=== PATIENT | male | born 1985 | race Caucasian/White ===

== ENCOUNTER 2018-03-28 10:22 | Emergency (ER) | payer OTHER, SELFPAY ==
[2018-03-28 10:34] VITALS: BP 156/96; PULSE 110; RESP 18; TEMP 36.2; O2SAT 100
--- NOTE | 2018-03-28 10:47 | DI.RAD.S_ITS ---
PROCEDURE: XR CHEST 2V INDICATIONS: cough TECHNIQUE: 2 views of the chest were acquired. COMPARISON: [facility], CHEST 2 VIEW, 07/06/2017, 15:46. [facility], CHEST 1 VIEW, 06/07/2017, 12:16. FINDINGS: Surgical changes and devices: None. Lungs and pleura: No pleural effusions or pneumothorax. Lungs are clear. Mediastinum: Mediastinal contours are normal. Heart size is normal. Bones and chest wall: No suspicious bony abnormalities. Soft tissues appear unremarkable. IMPRESSION: No radiographic evidence of acute cardiopulmonary pathology. Dictated by: Levon Lopez M.D. on 03/28/2018 at 11:31 Approved by: Levon Lopez M.D. on 03/28/2018 at 11:32
--- NOTE | 2018-03-28 10:47 | DI.CT.S_ITS ---
PROCEDURE: CT ABDOMEN PELVIS W CON INDICATIONS: superior to umbilicus pain and ? palpable tissue - hernia? TECHNIQUE: After the administration of intravenous contrast, 5 mm thick sections acquired from the diaphragm to the symphysis. 5 mm coronal and sagittal reformats were acquired. For radiation dose reduction, the following was used: automated exposure control, adjustment of mA and/or kV according to patient size. COMPARISON: [facility], CT, LOWER EXTREMITY WO CONTRAST, 10/09/2017, 20:16. FINDINGS: Image quality: Excellent. ABDOMEN: Lung bases: Lung bases are clear. Heart size is normal. Solid organs: Fatty infiltration of liver. The gallbladder is radiographically normal. Biliary system is non dilated. Pancreas enhances normally. Spleen is normal in size and enhancement. No adrenal nodules. Kidneys demonstrate normal size and enhancement, without hydronephrosis. Peritoneum and bowel: Diffuse fatty infiltration of the colon and a portion of the small bowel. There minimally prominent portions of small bowel with air-fluid levels. Normal appendix. Nodes and vessels: No retroperitoneal or mesenteric adenopathy by size criteria. Aorta and inferior vena cava are normal in size. Miscellaneous: Small fat-containing periumbilical hernia. PELVIS: Genitourinary: Bladder wall thickness is normal. Miscellaneous: No inguinal hernias or adenopathy. Bones: No suspicious bony lesions. No vertebral body compression fractures. Lumbar spine degenerative change. IMPRESSION: 1. Diffuse fatty infiltration of the colon and a portion of the small bowel may represent chronic inflammation. Please correlate for any clinical history of inflammatory bowel disease. 2. Several loops of small bowel including the terminal ileum are mildly prominent with air-fluid levels. Obstruction is unlikely. Findings likely represent sequelae of chronic inflammation. 3. Fatty infiltration of the liver. Dictated by: Levon Lopez M.D. on 03/28/2018 at 11:34 Approved by: Levon Lopez M.D. on 03/28/2018 at 11:39
[2018-03-28 11:14] LABS: Add Manual Diff / Slide Review NO; Basophils Percent Auto 0.7 % (0-2); Eosinophils Percent Auto 0.5 % (2-4); Hematocrit 45.2 % (41-53); Hemoglobin 15.6 g/dL (13.5-17.5); Lymphocytes Percent Auto 16.9 % (25-40); Mean Corpuscular HGB Conc 34.6 % (30-36); Mean Corpuscular Hemoglobin 29.6 PG (26-34); Mean Corpuscular Volume 85.5 fL (80-100); Monocytes Percent Auto 5.8 % (3-14); Neutrophils Absolute Auto 9700 /uL (3000-5900); Neutrophils Percent Auto 76.1 % (50-75); Platelet Count 347 X10^3/uL (150-400); Red Blood Cell Count 5.28 X10^6/uL (4.5-5.9); Red Cell Distribution Width 13.2 % (11.6-14.8); White Blood Cell Count 12.8 X10^3/uL (4.5-11.0)
[2018-03-28 11:25] LABS: Alanine Aminotransferase 50 IU/L (21-72); Albumin 4.8 g/dL (3.5-5.0); Albumin Globulin Ratio 1.5 (1.0-2.8); Alkaline Phosphatase 73 U/L (38-126); Aspartate Aminotransferase 34 IU/L (17-59); BUN Creatinine Ratio 14.4 (6-22); Bilirubin Total 0.5 mg/dL (0.2-1.3); Blood Urea Nitrogen 13 mg/dL (9-20); Calcium 9.9 mg/dL (8.4-10.2); Carbon Dioxide 31 mmol/L (22-32); Chloride 96 mmol/L (98-107); Estimated Glomerular Filt Rate > 60.0 mL/min (>60); Globulin 3.2 g/dL (1.7-4.1); Glucose 109 mg/dL (70-100); HEMOLYSIS < 15 (0-50); Lipase 244 U/L (23-300); Potassium 3.7 mmol/L (3.4-5.1); Sodium 141 mmol/L (137-145)
--- NOTE | 2018-03-28 11:33 | RT ---
EKG ORDER CAME TO US AT 10:52 ORDER FOUND ON PRINTER @ [id number] EKG WAS DONE @ 11:21 BUT PT HAD BEEN OVER IN X-RAY BEFORE RT WENT TO ER.
[2018-03-28 11:38] LABS: Troponin I < 0.012 ng/mL (0.01-0.034)
[2018-03-28 12:59] LABS: Procalcitonin < 0.05 ng/mL (<0.5)
--- NOTE | 2018-03-28 13:32 | ED.ABDPAIN ---
HPI - Abdominal Pain General Chief Complaint: Abdominal Pain Stated Complaint: Abdominal pain Time Seen by Provider: 03/28/18 10:29 History of Present Illness HPI narrative: HPI 32-year-old obese male presents for evaluation of upper midline sharp nonradiating pain that occurs when coughing; notes one month of nonproductive cough refractory to azithromycin and doxycycline. Patient is a recreational marijuana smoker, denies cigarette usage. Continues pass flatus and stool at baseline. No chest pain, shortness breath, fevers, chills. M/S/F/SocHx notable for: please see HPI; remainder reviewed with patient and in chart. ROS: Negative constitutional, eye, cardiovascular, pulmonary, GI, , MSK, skin, neurologic, psychiatric, endocrine unless noted in the HPI. Exam Gen: Pleasant, non-toxic appearing, resting comfortably. HEENT: NC, AT, PEERL, EOMI. Resp: Clear to auscultation bilaterally, normal work of breathing, no accessory muscle usage. Card: Regular rate and rhythm with no murmurs, rubs, or gallops, extremities warm and well perfused. GI: proximally 5 cm superior to the umbilicus there is midline tenderness to palpation with a questionable soft tissue palpable abnormality, otherwise non-tender to palpation throughout all quadrants, no focal tenderness at McBurney's point, negative Mayo's sign, non-distended, no rebound or guarding. : No suprapubic tenderness to palpation. MSK: No visible deformities, strength and tone without visually appreciable deficit. Skin: Normal color with no visible lesions. Neuro: AO x 3, no facial asymmetry, vision and hearing WNL. Psych: Mood and affect appropriate. Labs / Imaging: WBC 12.8, hemoglobin 15.6, sodium 141, potassium 3.7, total bilirubin 0.5, AST 34, ALT 50, ALP 73, lipase 244. Troponin <0.012 Procalcitonin <0.05 CT Abd/pelvis: diffuse fatty infiltration the colon and portion small bowel may represent chronic inflammation. Please correlate for in a clinical history of inflammatory bowel disease. Several loops of small bowel including the terminal ileum are mildly prominent with air-fluid levels. Obstruction is unlikely. Findings likely represent sequela of chronic inflammation. Fatty infiltration of the liver. CXR: no radiographic evidence for acute cardiopulmonary pathology. EKG: SR 90 bpm, no ST segment elevations or depressions, no LBBB, no NH segment changes. MDM Previous chart, nursing note, labs, imaging, and vitals reviewed. A: 32-year-old obese male presents for evaluation of upper midline sharp nonradiating pain that occurs when coughing; notes one month of nonproductive cough refractory to azithromycin and doxycycline. DDx & Evaluation: patient's chest x-ray is without evidence of cardiopulmonary abnormality, has a mild nonspecific leukocytosis, negative Procalcitonin. As such there is no clear evidence of pericardial or pleural effusions, pulmonary edema, pneumonitis, or pneumonia. Given the unremarkable EKG and negative troponin, strongly doubt ACS, myocarditis, pericarditis. Patient without factors on history or exam suggestive of PE. No evidence of pancreatitis, CT abdomen and pelvis with symptoms suggestive of chronic inflammation, this was communicated with the patient and the patient instructed to follow up with their PCP. No evidence of hernia or obstruction. Impression: cough, abdominal pain. (please reference below for remainder of encounter information) Related Data Home Medications Medication Instructions Recorded Confirmed acetaminophen 650 mg PO PRN PRN #0 04/22/17 multivitamin [Multiple Vitamins] 1 tab PO QDAY #0 06/04/17 Previous Rx's Medication Instructions Recorded topiramate [Topamax] 25 mg OR HS #30 tab 06/10/17 albuterol sulfate [Ventolin HFA] 2 puff INH Q4HP PRN #1 ea 02/10/18 doxycycline hyclate 100 mg PO BID #20 tab 02/10/18 gabapentin [Neurontin] 800 mg PO QID #120 tab 02/10/18 hydrochlorothiazide 50 mg PO QDAY #90 tab 02/10/18 hydrocodone-acetaminophen [[place]] 1 tab PO Q6HP PRN #20 tab 02/10/18 ibuprofen 800 mg PO Q8HP PRN #60 tab 02/10/18 lisinopril 10 mg PO QDAY #90 tab 02/10/18 Allergies Allergy/AdvReac Type Severity Reaction Status Date / Time No Known Allergies Allergy Uncoded 02/04/18 12:40 PFSH Surgical History History of knee replacement Exam Initial Vital Signs Initial Vital Signs: Vital Signs Temperature 97.2 F L 03/28/18 10:34 Pulse Rate 110 H 03/28/18 10:34 Respiratory Rate 18 03/28/18 10:34 Blood Pressure 156/96 H 03/28/18 10:34 Pulse Oximetry 100 03/28/18 10:34 Course Orders Ordered: ED Orders 03/28/18 10:47 CT abdomen pelvis w con Stat XR chest 2V Stat 03/28/18 11:00 Complete Blood Count AUTO DIFF Stat Comprehensive Metabolic Panel Stat Lipase Stat Procalcitonin Stat Troponin I Stat 03/28/18 11:21 EKG-12 Lead Stat 03/28/18 11:40 Bordetella pertussis PCR Stat Vital Signs - 8 hr 03/28/18 10:34 Temperature 97.2 F L Pulse Rate 110 H Respiratory Rate 18 Blood Pressure 156/96 H Pulse Oximetry 100 MDM - Abdominal Pain Lab Data Result diagrams: 03/28/18 11:00 03/28/18 11:00 Lab Results 03/28/18 03/28/18 03/28/18 Range/Units 11:00 11:00 11:00 WBC 12.8 H (4.5-11.0) X10^3/uL RBC 5.28 (4.5-5.9) X10^6/uL Hgb 15.6 (13.5-17.5) g/dL Hct 45.2 (41-53) % MCV 85.5 (80-100) fL MCH 29.6 (26-34) PG MCHC 34.6 (30-36) % RDW 13.2 (11.6-14.8) % Plt Count 347 (150-400) X10^3/uL Neut % (Auto) 76.1 H (50-75) % Lymph % (Auto) 16.9 L (25-40) % [place] % (Auto) 5.8 (3-14) % Eos % (Auto) 0.5 L (2-4) % Baso % (Auto) 0.7 (0-2) % Neut # (Auto) 9700 H (2787-1230) /uL Sodium 141 (137-145) mmol/L Potassium 3.7 (3.4-5.1) mmol/L Chloride 96 L (98-107) mmol/L Carbon Dioxide 31 (22-32) mmol/L BUN 13 (9-20) mg/dL Creatinine 0.90 (0.66-1.25) mg/dL Estimated GFR > 60.0 (>60) mL/min BUN/Creatinine Ratio 14.4 (6-22) Glucose 109 H (70-100) mg/dL Calcium 9.9 (8.4-10.2) mg/dL Total Bilirubin 0.5 (0.2-1.3) mg/dL AST 34 (17-59) IU/L ALT 50 (21-72) IU/L Alkaline Phosphatase 73 (38-126) U/L Troponin I (0.01-0.034) ng/mL Total Protein 8.0 (6.3-8.2) g/dL Albumin 4.8 (3.5-5.0) g/dL Globulin 3.2 (1.7-4.1) g/dL Albumin/Globulin Ratio 1.5 (1.0-2.8) Lipase 244 (23-300) U/L Procalcitonin < 0.05 (<0.5) ng/mL 03/28/18 Range/Units 11:00 WBC (4.5-11.0) X10^3/uL RBC (4.5-5.9) X10^6/uL Hgb (13.5-17.5) g/dL Hct (41-53) % MCV (80-100) fL MCH (26-34) PG MCHC (30-36) % RDW (11.6-14.8) % Plt Count (150-400) X10^3/uL Neut % (Auto) (50-75) % Lymph % (Auto) (25-40) % [place] % (Auto) (3-14) % Eos % (Auto) (2-4) % Baso % (Auto) (0-2) % Neut # (Auto) (3919-4659) /uL Sodium (137-145) mmol/L Potassium (3.4-5.1) mmol/L Chloride (98-107) mmol/L Carbon Dioxide (22-32) mmol/L BUN (9-20) mg/dL Creatinine (0.66-1.25) mg/dL Estimated GFR (>60) mL/min BUN/Creatinine Ratio (6-22) Glucose (70-100) mg/dL Calcium (8.4-10.2) mg/dL Total Bilirubin (0.2-1.3) mg/dL AST (17-59) IU/L ALT (21-72) IU/L Alkaline Phosphatase (38-126) U/L Troponin I < 0.012 (0.01-0.034) ng/mL Total Protein (6.3-8.2) g/dL Albumin (3.5-5.0) g/dL Globulin (1.7-4.1) g/dL Albumin/Globulin Ratio (1.0-2.8) Lipase (23-300) U/L Procalcitonin (<0.5) ng/mL Discharge Plan Departure Prescriptions: No Action acetaminophen 650 MG tablet extended release 650 mg PO PRN PRNQty: 0 RF: 0 multivitamin [Multiple Vitamins] 1 EACH tablet 1 tab PO QDAY Qty: 0 RF: 0 topiramate [Topamax] 25 MG tablet 25 mg OR HS Qty: 30 RF: 1 hydrochlorothiazide 50 MG tablet 50 mg PO QDAY Qty: 90 RF: 2 lisinopril 10 MG tablet 10 mg PO QDAY Qty: 90 RF: 0 ibuprofen 800 MG tablet 800 mg PO Q8HP PRNQty: 60 RF: 0 gabapentin [Neurontin] 800 MG tablet 800 mg PO QID Qty: 120 RF: 3 albuterol sulfate [Ventolin HFA] 90 MCG/PUFF HFA aerosol inhaler 2 puff INH Q4HP PRNQty: 1 RF: 1 doxycycline hyclate 100 MG tablet 100 mg PO BID Qty: 20 RF: 0 hydrocodone-acetaminophen [[place]] 5 MG/325 MG tablet 1 tab PO Q6HP PRNQty: 20 RF: 0
[2018-03-28 13:44] VITALS: BP 160/101; PULSE 88; RESP 20; O2SAT 98
== END 2018-03-28 13:44 | disposition home or self-care (01) ==
PROVIDERS: Emergency Provider Emergency Medicine; Family Provider Family Medicine; PCP Family Medicine
DX: R05 Cough (principal); R10.9 Unspecified abdominal pain
CPT/HCPCS: 36591; 71046; 74177; 80053; 83690; 84145; 84484; 85025; 87798; 93005; 99282; 99285; Q9967

== ENCOUNTER 2018-04-14 08:10 | Emergency (ER) | payer OTHER, SELFPAY ==
[2018-04-14 08:18] VITALS: BP 125/90; PULSE 109; RESP 16; O2SAT 98; BMI 39.3
--- NOTE | 2018-04-14 09:05 | ED.URI ---
HPI - URI/Sore Throat General Chief Complaint: Upper Respiratory Symptoms Stated Complaint: BLISTERS IN THROAT AND HANDS Time Seen by Provider: 04/14/18 08:13 Source: patient Mode of arrival: ambulatory Limitations: no limitations History of Present Illness HPI Narrative: 32-year-old male with history of asthma presents to the emergency department with chief complaint of painful blisters on bilateral poems. He states he has been exposed to [id number] disease and is concerned of the same in himself. He admits to a sore throat and difficulty swallowing as well as fever up to 103 at home MD Complaint: fever and sore throat Onset (ago): hour(s) Duration: constant Severity: moderate Relieving factors: nothing Exacerbating factors: nothing Associated symptoms: fever and sore throat Related Data Home Medications Medication Instructions Recorded Confirmed acetaminophen 650 mg PO PRN PRN #0 04/22/17 multivitamin [Multiple Vitamins] 1 tab PO QDAY #0 06/04/17 Previous Rx's Medication Instructions Recorded topiramate [Topamax] 25 mg OR HS #30 tab 06/10/17 albuterol sulfate [Ventolin HFA] 2 puff INH Q4HP PRN #1 ea 02/10/18 doxycycline hyclate 100 mg PO BID #20 tab 02/10/18 gabapentin [Neurontin] 800 mg PO QID #120 tab 02/10/18 hydrochlorothiazide 50 mg PO QDAY #90 tab 02/10/18 hydrocodone-acetaminophen [[place]] 1 tab PO Q6HP PRN #20 tab 02/10/18 ibuprofen 800 mg PO Q8HP PRN #60 tab 02/10/18 lisinopril 10 mg PO QDAY #90 tab 02/10/18 lisinopril 40 mg PO DAILY #30 tab 04/14/18 Allergies Allergy/AdvReac Type Severity Reaction Status Date / Time No Known Allergies Allergy Uncoded 02/04/18 12:40 Review of Systems Review of Systems All systems reviewed & are unremarkable except as noted in HPI and below Constitutional Denies chills, Denies fever(s), Denies lethargy and Denies weakness Eyes Denies change in vision, Denies eye discharge, Denies irritation and Denies loss of vision ENT Ears, Nose, Mouth, and Throat: Denies change in voice, Denies neck pain and Reports sore throat Cardiovascular Denies chest pain, Denies irregular heart rhythm, Denies lightheadedness, Denies palpitations, Denies dyspnea, Denies dyspnea on exertion and Denies orthopnea Respiratory Denies cough, Denies dyspnea, Denies dyspnea on exertion and Denies wheezing Gastrointestinal Gastrointestinal: Denies abdominal pain, Denies change in bowel habits, Denies diarrhea, Denies nausea and Denies vomiting Genitourinary Denies hematuria, Denies flank pain, Denies urinary incontinence and Denies urinary urgency Musculoskeletal Denies neck pain Integumentary/Breasts Denies pruritus, Reports erythema, Denies rash, Reports skin pain, Reports sores and Denies wounds Neurologic Denies confusion, Denies loss of vision and Denies weakness Psychiatric Denies anxiety, Denies confusion, Denies depression, Denies homicidal ideation and Denies suicidal ideation Endocrine Denies palpitations Hematologic/Lymphatic Denies easy bruising Allergic/Immunologic Denies wheezing PFSH Medical History Back pain (Chronic) Neuropathy (Chronic) Surgical History History of facial surgery (Resolved) Status post hip surgery (Resolved) History of knee replacement Social History Smoking Status: Never smoker Exam Narrative Exam Narrative: Pleasant 32-year-old male obviously uncomfortable, does not feel well Initial Vital Signs Initial Vital Signs: Vital Signs Pulse Rate 109 H 04/14/18 08:18 Respiratory Rate 16 04/14/18 08:18 Blood Pressure 125/90 H 04/14/18 08:18 Pulse Oximetry 98 04/14/18 08:18 Const General: cooperative and well developed Nutritional Appearance: well nourished Orientation: alert, awake, oriented x3 and not confused [facility] Head: normocephalic and atraumatic Ears: external ears normal and TM's normal bilaterally Nose: external nose normal and No nasal discharge Face and sinus: sinuses nontender, face symmetric, no sinus tenderness and No dry mucous membranes Mouth: moist mucous membranes Teeth and gingiva: dentition normal Throat: tonsils normal, uvula midline and posterior oropharynx abnormal (Erythema with small lesions on soft palate) Eyes General: appearance normal, both eyes and all related structures Eyelids: eyelids normal Conjunctivae: conjunctivae normal Sclera: sclerae normal Pupils: PERRL EOM: EOM intact bilaterally Neck Neck: normal visual inspection, trachea midline, No lymphadenopathy, No midline deformity and No JVD Lymphatic: No lymphedema Resp Effort & Inspection: normal respiratory effort, able to speak in complete sentences, no respiratory distress and no use of accessory muscles Auscultation: clear to auscultation bilaterally, no rales, no rhonchi and no wheezes GI Inspection: non-distended Palpation: soft, no hepatosplenomegaly, No guarding, No pulsatile mass and No tender Auscultation: normal bowel sounds Skin Lesions: lesion noted (Multiple small itchy/painful blisters on hands) Neuro General: alert, oriented x3, gait normal and no focal motor deficits Speech: speech normal Psych Appearance: well kempt Mental Status: mental status grossly normal Attitude: cooperative Thought Content: normal and suicidality Judgment: judgment good Course Vital Signs - 8 hr 04/14/18 10:22 Pulse Rate 97 H Respiratory Rate 18 Blood Pressure 138/99 H Pulse Oximetry 99 Discharge Plan Departure Patient Disposition: Home, Self-Care Clinical Impression: Hand, foot and mouth disease Discharge Date/Time: 04/14/18 10:25 Interventions: ED Discharge Assessment Last Done: 04/14/18 10:22 Instructions: Hand, Foot, and Mouth Disease Activity Restrictions/Additional Instructions: *You have been diagnosed with [ [id number] disease ] *What to do: *Take medications as directed *Follow up with your primary care provider in 2-3 days for followup on today's visit and to discuss your chronic cough which may be due to lisinopril *Return to ER if you should have any new, worsening or concerning symptoms Prescriptions: New lisinopril 40 mg tablet 40 mg PO DAILY Qty: 30 RF: 0 No Action acetaminophen 650 MG tablet extended release 650 mg PO PRN PRNQty: 0 RF: 0 multivitamin [Multiple Vitamins] 1 EACH tablet 1 tab PO QDAY Qty: 0 RF: 0 topiramate [Topamax] 25 MG tablet 25 mg OR HS Qty: 30 RF: 1 hydrochlorothiazide 50 MG tablet 50 mg PO QDAY Qty: 90 RF: 2 lisinopril 10 MG tablet 10 mg PO QDAY Qty: 90 RF: 0 ibuprofen 800 MG tablet 800 mg PO Q8HP PRNQty: 60 RF: 0 gabapentin [Neurontin] 800 MG tablet 800 mg PO QID Qty: 120 RF: 3 albuterol sulfate [Ventolin HFA] 90 MCG/PUFF HFA aerosol inhaler 2 puff INH Q4HP PRNQty: 1 RF: 1 doxycycline hyclate 100 MG tablet 100 mg PO BID Qty: 20 RF: 0 hydrocodone-acetaminophen [[place]] 5 MG/325 MG tablet 1 tab PO Q6HP PRNQty: 20 RF: 0 Stand Alone Forms: Work/School Restrictions
--- NOTE | 2018-04-14 09:24 | ED_ITS ---
HPI - URI/Sore Throat General Chief Complaint: Upper Respiratory Symptoms Stated Complaint: BLISTERS IN THROAT AND HANDS Time Seen by Provider: 04/14/18 08:13 Source: patient Mode of arrival: ambulatory Limitations: no limitations History of Present Illness HPI Narrative: 32-year-old male with history of asthma presents to the emergency department with chief complaint of painful blisters on bilateral poems. He states he has been exposed to [id number] disease and is concerned of the same in himself. He admits to a sore throat and difficulty swallowing as well as fever up to 103 at home MD Complaint: fever and sore throat Onset (ago): hour(s) Duration: constant Severity: moderate Relieving factors: nothing Exacerbating factors: nothing Associated symptoms: fever and sore throat Related Data Home Medications Medication Instructions Recorded Confirmed acetaminophen 650 mg PO PRN PRN #0 04/22/17 multivitamin [Multiple Vitamins] 1 tab PO QDAY #0 06/04/17 Previous Rx's Medication Instructions Recorded topiramate [Topamax] 25 mg OR HS #30 tab 06/10/17 albuterol sulfate [Ventolin HFA] 2 puff INH Q4HP PRN #1 ea 02/10/18 doxycycline hyclate 100 mg PO BID #20 tab 02/10/18 gabapentin [Neurontin] 800 mg PO QID #120 tab 02/10/18 hydrochlorothiazide 50 mg PO QDAY #90 tab 02/10/18 hydrocodone-acetaminophen [[place]] 1 tab PO Q6HP PRN #20 tab 02/10/18 ibuprofen 800 mg PO Q8HP PRN #60 tab 02/10/18 lisinopril 10 mg PO QDAY #90 tab 02/10/18 lisinopril 40 mg PO DAILY #30 tab 04/14/18 Allergies Allergy/AdvReac Type Severity Reaction Status Date / Time No Known Allergies Allergy Uncoded 02/04/18 12:40 Review of Systems Review of Systems All systems reviewed & are unremarkable except as noted in HPI and below Constitutional Denies chills, Denies fever(s), Denies lethargy and Denies weakness Eyes Denies change in vision, Denies eye discharge, Denies irritation and Denies loss of vision ENT Ears, Nose, Mouth, and Throat: Denies change in voice, Denies neck pain and Reports sore throat Cardiovascular Denies chest pain, Denies irregular heart rhythm, Denies lightheadedness, Denies palpitations, Denies dyspnea, Denies dyspnea on exertion and Denies orthopnea Respiratory Denies cough, Denies dyspnea, Denies dyspnea on exertion and Denies wheezing Gastrointestinal Gastrointestinal: Denies abdominal pain, Denies change in bowel habits, Denies diarrhea, Denies nausea and Denies vomiting Genitourinary Denies hematuria, Denies flank pain, Denies urinary incontinence and Denies urinary urgency Musculoskeletal Denies neck pain Integumentary/Breasts Denies pruritus, Reports erythema, Denies rash, Reports skin pain, Reports sores and Denies wounds Neurologic Denies confusion, Denies loss of vision and Denies weakness Psychiatric Denies anxiety, Denies confusion, Denies depression, Denies homicidal ideation and Denies suicidal ideation Endocrine Denies palpitations Hematologic/Lymphatic Denies easy bruising Allergic/Immunologic Denies wheezing PFSH Medical History Back pain (Chronic) Neuropathy (Chronic) Surgical History History of facial surgery (Resolved) Status post hip surgery (Resolved) History of knee replacement Social History Smoking Status: Never smoker Exam Narrative Exam Narrative: Pleasant 32-year-old male obviously uncomfortable, does not feel well Initial Vital Signs Initial Vital Signs: Vital Signs Pulse Rate 109 H 04/14/18 08:18 Respiratory Rate 16 04/14/18 08:18 Blood Pressure 125/90 H 04/14/18 08:18 Pulse Oximetry 98 04/14/18 08:18 Const General: cooperative and well developed Nutritional Appearance: well nourished Orientation: alert, awake, oriented x3 and not confused [facility] Head: normocephalic and atraumatic Ears: external ears normal and TM's normal bilaterally Nose: external nose normal and No nasal discharge Face and sinus: sinuses nontender, face symmetric, no sinus tenderness and No dry mucous membranes Mouth: moist mucous membranes Teeth and gingiva: dentition normal Throat: tonsils normal, uvula midline and posterior oropharynx abnormal ( Erythema with small lesions on soft palate) Eyes General: appearance normal, both eyes and all related structures Eyelids: eyelids normal Conjunctivae: conjunctivae normal Sclera: sclerae normal Pupils: PERRL EOM: EOM intact bilaterally Neck Neck: normal visual inspection, trachea midline, No lymphadenopathy, No midline deformity and No JVD Lymphatic: No lymphedema Resp Effort & Inspection: normal respiratory effort, able to speak in complete sentences, no respiratory distress and no use of accessory muscles Auscultation: clear to auscultation bilaterally, no rales, no rhonchi and no wheezes GI Inspection: non-distended Palpation: soft, no hepatosplenomegaly, No guarding, No pulsatile mass and No tender Auscultation: normal bowel sounds Skin Lesions: lesion noted (Multiple small itchy/painful blisters on hands) Neuro General: alert, oriented x3, gait normal and no focal motor deficits Speech: speech normal Psych Appearance: well kempt Mental Status: mental status grossly normal Attitude: cooperative Thought Content: normal and suicidality Judgment: judgment good Course Vital Signs - 8 hr 04/14/18 10:22 Pulse Rate 97 H Respiratory Rate 18 Blood Pressure 138/99 H Pulse Oximetry 99 Discharge Plan Departure Patient Disposition: Home, Self-Care Clinical Impression: Hand, foot and mouth disease Discharge Date/Time: 04/14/18 10:25 Interventions: ED Discharge Assessment Last Done: 04/14/18 10:22 Instructions: Hand, Foot, and Mouth Disease Activity Restrictions/Additional Instructions: *You have been diagnosed with [ [id number] disease ] *What to do: *Take medications as directed *Follow up with your primary care provider in 2-3 days for followup on today's visit and to discuss your chronic cough which may be due to lisinopril *Return to ER if you should have any new, worsening or concerning symptoms Prescriptions: New lisinopril 40 mg tablet 40 mg PO DAILY Qty: 30 RF: 0 No Action acetaminophen 650 MG tablet extended release 650 mg PO PRN PRNQty: 0 RF: 0 multivitamin [Multiple Vitamins] 1 EACH tablet 1 tab PO QDAY Qty: 0 RF: 0 topiramate [Topamax] 25 MG tablet 25 mg OR HS Qty: 30 RF: 1 hydrochlorothiazide 50 MG tablet 50 mg PO QDAY Qty: 90 RF: 2 lisinopril 10 MG tablet 10 mg PO QDAY Qty: 90 RF: 0 ibuprofen 800 MG tablet 800 mg PO Q8HP PRNQty: 60 RF: 0 gabapentin [Neurontin] 800 MG tablet 800 mg PO QID Qty: 120 RF: 3 albuterol sulfate [Ventolin HFA] 90 MCG/PUFF HFA aerosol inhaler 2 puff INH Q4HP PRNQty: 1 RF: 1 doxycycline hyclate 100 MG tablet 100 mg PO BID Qty: 20 RF: 0 hydrocodone-acetaminophen [[place]] 5 MG/325 MG tablet 1 tab PO Q6HP PRNQty: 20 RF: 0 Stand Alone Forms: Work/School Restrictions
--- NOTE | 2018-04-14 10:21 | PC.NURSE ---
Blisters to mouth and hands, kids with the same form daycare.
[2018-04-14 10:22] VITALS: BP 138/99; PULSE 97; RESP 18; O2SAT 99
== END 2018-04-14 10:25 | disposition home or self-care (01) ==
PROVIDERS: Emergency Provider Emergency Medicine; Family Provider Family Medicine; PCP Family Medicine
DX: B08.4 Enteroviral vesicular stomatitis with exanthem (principal)
CPT/HCPCS: 87880; 99282

== ENCOUNTER 2018-06-18 15:09 | Emergency (ER) | payer OTHER, SELFPAY ==
--- NOTE | 2018-06-18 15:16 | ED.LOWEXIN ---
HPI - Extremity Injury (Lower) <JEANNIE Sparrow - Last Filed: 06/18/18 22:20> General Chief Complaint: Extremity Injury, Lower Stated Complaint: FALL AT WORK, LEFT KNEE PAIN Time Seen by Provider: 06/18/18 15:14 Source: patient Mode of arrival: ambulatory Limitations: no limitations History of Present Illness HPI Narrative: 32-year-old male here for complaint of pain into his left knee. He states that he slipped on wet greasy floor causing him to hit the side of a [place] with his left knee. He reports that he has hardware to his knee from a prior surgery for left knee repair. He reports increased pain with ambulation and movement of the left knee. He denies any other injuries or concerns at this point. MD complaint: knee injury Related Data Home Medications Medication Instructions Recorded Confirmed acetaminophen 650 mg PO PRN PRN #0 04/22/17 06/18/18 multivitamin [Multiple Vitamins] 1 tab PO QDAY #0 06/04/17 06/18/18 ibuprofen 800 mg PO Q8HP PRN 06/18/18 06/18/18 Previous Rx's Medication Instructions Recorded hydrochlorothiazide 50 mg PO QDAY #90 tab 02/10/18 lisinopril 40 mg PO DAILY #30 tab 04/14/18 albuterol sulfate HFA 90 2 puff INHALATION Q4HP PRN #1 ea 05/19/18 mcg/actuation aerosol inhaler hydrocodone-acetaminophen [[place]] 1 tab PO Q4-6H PRN #6 tab 06/18/18 Allergies Allergy/AdvReac Type Severity Reaction Status Date / Time No Known Allergies Allergy Uncoded 06/18/18 15:24 Review of Systems <JEANNIE Sparrow - Last Filed: 06/18/18 22:20> Constitutional Denies chills, Denies fever(s), Denies lethargy and Denies weakness Eyes Denies change in vision, Denies eye discharge, Denies irritation and Denies loss of vision ENT Ears, Nose, Mouth, and Throat: Denies change in voice, Denies neck pain, Denies sore throat and Denies throat swelling Cardiovascular Denies chest pain, Denies irregular heart rhythm, Denies lightheadedness, Denies palpitations and Denies orthopnea Respiratory Denies wheezing Gastrointestinal Gastrointestinal: Denies abdominal pain, Denies change in bowel habits, Denies diarrhea, Denies nausea and Denies vomiting Genitourinary Denies hematuria, Denies flank pain, Denies urinary incontinence and Denies urinary urgency Musculoskeletal Denies neck pain Comments: Left knee pain Integumentary/Breasts Denies pruritus, Denies erythema, Denies rash and Denies wounds Neurologic Denies confusion, Denies loss of vision and Denies weakness Psychiatric Denies anxiety, Denies confusion, Denies depression, Denies homicidal ideation and Denies suicidal ideation Endocrine Denies palpitations Hematologic/Lymphatic Denies easy bruising Allergic/Immunologic Denies urticaria, Denies throat swelling and Denies wheezing Exam <KASIA SparrowP - Last Filed: 06/18/18 22:20> Initial Vital Signs Initial Vital Signs: Vital Signs Temperature 97.9 F 06/18/18 15:17 Pulse Rate 97 H 06/18/18 15:17 Respiratory Rate 18 06/18/18 15:17 Blood Pressure 128/68 H 06/18/18 15:17 Pulse Oximetry 100 06/18/18 15:17 Const General: cooperative and well developed Nutritional Appearance: well nourished Orientation: alert, awake, oriented x3 and not confused [place] Mouth: oral mucosae normal and moist mucous membranes Eyes Conjunctivae: conjunctivae normal Sclera: sclerae normal Pupils: PERRL EOM: EOM intact bilaterally Resp Effort & Inspection: normal respiratory effort, able to speak in complete sentences, no respiratory distress and no use of accessory muscles Auscultation: clear to auscultation bilaterally, no rales, no rhonchi and no wheezes Cardio Rate: regular rate Rhythm: regular rhythm Heart Sounds: no click, no gallops, no murmurs and no rubs Pulses: normal peripheral pulses Skin General: no rashes or lesions noted, No jaundice and No petechiae Neuro General: alert, oriented x3, gait normal and no focal motor deficits Speech: speech normal Extrem Other: Left knee with no signs of trauma. No ecchymosis. No swelling no erythema. Patient has full range of motion to the left knee. No open lesions. Distal sensation is intact. Distal pulses are intact. Distal range of motion is intact. <Eriberto Calderon DO - Last Filed: 06/19/18 07:37> Initial Vital Signs Initial Vital Signs: Vital Signs Temperature 97.9 F 06/18/18 15:17 Pulse Rate 97 H 06/18/18 15:17 Respiratory Rate 18 06/18/18 15:17 Blood Pressure 128/68 H 06/18/18 15:17 Pulse Oximetry 100 06/18/18 15:17 Course <JEANNIE Sparrow - Last Filed: 06/18/18 22:20> Orders Ordered: Discontinued Medications Ibuprofen (Advil) 400 mg PO NOW ONE Stop: 06/18/18 16:05 Last Admin: 06/18/18 16:58 Dose: 400 mg Vital Signs - 8 hr 06/18/18 15:17 06/18/18 17:22 Temperature 97.9 F Pulse Rate 97 H 92 H Respiratory Rate 18 16 Blood Pressure 128/68 H Blood Pressure [Left Arm] 132/76 H Pulse Oximetry 100 100 <Eribetro Calderon DO - Last Filed: 06/19/18 07:37> Orders Ordered: Discontinued Medications Ibuprofen (Advil) 400 mg PO NOW ONE Stop: 06/18/18 16:05 Last Admin: 06/18/18 16:58 Dose: 400 mg Vital Signs - 8 hr 06/18/18 15:17 06/18/18 17:22 Temperature 97.9 F Pulse Rate 97 H 92 H Respiratory Rate 18 16 Blood Pressure 128/68 H Blood Pressure [Left Arm] 132/76 H Pulse Oximetry 100 100 MDM - Extremity Injury (Lower) <JEANNIE Sparrow - Last Filed: 06/18/18 22:20> Imaging Data Left knee: Radiologist's impression: PROCEDURE: XR KNEE LT 3V INDICATIONS: knee injury TECHNIQUE: 3 views of the knee were acquired. COMPARISON: [facility], , KNEE 3V LEFT, 12/31/2017, 19:45. FINDINGS: Bones: Patellar fixation hardware is unchanged. Hardware appears intact and prior patellar fractures healed. No acute fracture is seen. On AP view, there is a radiodensity projecting over the lateral joint space raising possibility of loose body. Soft tissues: No joint effusion. No suspicious soft tissue calcifications. IMPRESSION: 1. Remote ORIF patellar fracture again noted. No joint effusion or acute fracture. 2. Possible loose body. Dictated by: Dillon Merida M.D. on 06/18/2018 at 16:02 Approved by: Dillon Merida M.D. on 06/18/2018 at 16:06 MDM Narrative Medical decision making narrative: X-ray of the left knee was obtained was negative for any acute fractures. There is a radiodensity to the lateral aspect of the left knee that is concerning for possible loose body. He is placed in a knee immobilizer and crutches. He is referred Orthopedics for further evaluation. Patient to call the number tomorrow to schedule follow-up appointment here in the next few days. [id number] Tylenol or Motrin as needed for any discomfort. Small amount of [place] is prescribed for breakthrough pain. Rest area. For any worsening symptoms return to the emergency room. Discharge Plan Departure Patient Disposition: Home Clinical Impression: Contusion of knee, left Discharge Date/Time: 06/18/18 17:25 Interventions: ED Discharge Assessment Last Done: 06/18/18 17:25 Instructions: DI for Knee Pain Activity Restrictions/Additional Instructions: X-ray the left knee was negative for any fractures. There is a small radiodensity to the lateral aspect of the left knee that might indicate a loose body from prior repair. You are referred to Orthopedics for further evaluation call the number at the number provided to schedule follow-up appointment here in the next few days. You have been placed in a knee immobilizer and crutches for nonweightbearing and support use as directed. Use [id number] Tylenol or Motrin as needed for any discomfort. Small amount of [place] is prescribed for breakthrough pain use as directed no driving while on the [place]. For any worsening symptoms return to the emergency room. Prescriptions: New hydrocodone-acetaminophen [[place]] 5-325 mg tablet 1 tab PO Q4-6H PRN (Reason: pain) Qty: 6 RF: 0 No Action acetaminophen 650 MG tablet extended release 650 mg PO PRN PRN (Reason: pain) Qty: 0 RF: 0 multivitamin [Multiple Vitamins] 1 EACH tablet 1 tab PO QDAY Qty: 0 RF: 0 hydrochlorothiazide 50 MG tablet 50 mg PO QDAY Qty: 90 RF: 2 albuterol sulfate [Ventolin HFA] 90 mcg/actuation HFA aerosol inhaler 2 puff INHALATION Q4HP PRN (Reason: shortness of breath) Qty: 1 RF: 1 lisinopril 40 mg tablet 40 mg PO DAILY Qty: 30 RF: 0 ibuprofen 800 MG tablet 800 mg PO Q8HP PRN (Reason: Pain (Scale Score 1-3)) RF: 0 Referrals: Duran Terrell MD [Physician] - Berta Mueller DO [Primary Care Provider] - Stand Alone Forms: Work/School Restrictions <Eriberto Calderon DO - Last Filed: 06/19/18 07:37> Cosign ED Attending Sejal Attestation: I was available for consultation during this patient's emergency department encounter
[2018-06-18 15:17] VITALS: BP 128/68; PULSE 97; RESP 18; TEMP 36.6; O2SAT 100
--- NOTE | 2018-06-18 15:28 | DI.RAD.S_ITS ---
PROCEDURE: XR KNEE LT 3V INDICATIONS: knee injury TECHNIQUE: 3 views of the knee were acquired. COMPARISON: [facility], , KNEE 3V LEFT, 12/31/2017, 19:45. FINDINGS: Bones: Patellar fixation hardware is unchanged. Hardware appears intact and prior patellar fractures healed. No acute fracture is seen. On AP view, there is a radiodensity projecting over the lateral joint space raising possibility of loose body. Soft tissues: No joint effusion. No suspicious soft tissue calcifications. IMPRESSION: 1. Remote ORIF patellar fracture again noted. No joint effusion or acute fracture. 2. Possible loose body. Dictated by: Dillon Merida M.D. on 06/18/2018 at 16:02 Approved by: Dillon Merida M.D. on 06/18/2018 at 16:06
[2018-06-18] MEDS: IBUPROFEN 400 MG TABLET PO (16:58)
[2018-06-18 17:22] VITALS: BP 132/76; PULSE 92; RESP 16; O2SAT 100
== END 2018-06-18 17:25 | disposition home or self-care (01) ==
PROVIDERS: Emergency Provider Nurse Practitioner Family; Family Provider Family Medicine; PCP Family Medicine
DX: S80.02XA Contusion of left knee, initial encounter (principal); W01.198A Fall on same level from slipping, tripping and stumbling with subsequent striking against other object, initial encounter; Y99.0 Civilian activity done for income or pay
CPT/HCPCS: 73562; 99283

== ENCOUNTER 2018-10-17 18:57 | Emergency (ER) | payer OTHER, SELFPAY ==
[2018-10-17 19:04] VITALS: BP 131/95; PULSE 104; RESP 18; TEMP 36.7; O2SAT 100; BMI 34.2
--- NOTE | 2018-10-17 19:29 | DI.US.S_ITS ---
PROCEDURE: US SCROTUM INDICATIONS: RIGHT TESTICULAR PAIN; POSSIBLE HERNIA TECHNIQUE: Real-time scanning was performed of the scrotum and testicles, with image documentation. Color and pulse Doppler interrogation was performed of both testicles. COMPARISON: [facility], CT, CT ABDOMEN PELVIS W CON, 10/17/2018, 19:50. FINDINGS: Right: Testicle is normal in size at 4.4 x 2.2 x 3.1 cm, and homogenous in echotexture. Epididymis is normal in overall size and morphology. No hydrocele or varicoceles. Overlying scrotal skin is normal in thickness. Left: Testicle is normal in size at 3.8 x 2.8 x 3.2 cm, and homogeneous in echotexture. Epididymis is normal in overall size and morphology. No hydrocele or varicoceles. Overlying scrotal skin is normal in thickness. Doppler: Color and pulse Doppler demonstrate normal and symmetric arterial flow in both testicles. IMPRESSION: No definitive hernia identified on sonographic images. Testicles are within normal limits. Dictated by: María Casarez M.D. on 10/17/2018 at 20:53 Approved by: María Casarez M.D. on 10/17/2018 at 20:54
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
--- NOTE | 2018-10-17 19:35 | DI.CT.S_ITS ---
PROCEDURE: CT ABDOMEN PELVIS W CON INDICATIONS: right flank pain and groin pain TECHNIQUE: After the administration of intravenous contrast, 5 mm thick sections acquired from the diaphragm to the symphysis. 5 mm coronal and sagittal reformats were acquired. For radiation dose reduction, the following was used: automated exposure control, adjustment of mA and/or kV according to patient size. COMPARISON: [facility], US, US SCROTUM, 10/17/2018, 19:51. [facility], CT, CT ABDOMEN PELVIS W CON, 03/28/2018, 10:49. FINDINGS: Image quality: Excellent. ABDOMEN: Lung bases: Lung bases are clear. Heart size is normal. Solid organs: Liver is mildly enlarged steatosis. Gallbladder is unremarkable. Biliary system is non dilated. Pancreas enhances normally. Spleen is normal in size. 7 mm focus of low attenuation along the posterior aspect of the spleen likely represents a cyst and is unchanged compared to prior exam. No adrenal nodules. Kidneys demonstrate normal size and enhancement, without hydronephrosis. Peritoneum and bowel: Bowel loops demonstrate normal wall thickness and caliber. No free fluid or air. Nodes and vessels: No retroperitoneal or mesenteric adenopathy by size criteria. Aorta and inferior vena cava are normal in size. Miscellaneous: Fat-containing ventral hernia is present with rectus diastases measuring 20 mm. PELVIS: Genitourinary: Bladder wall thickness is normal. Miscellaneous: No inguinal hernias. 12 mm right inguinal lymph node is present. Bones: No suspicious bony lesions. No vertebral body compression fractures. IMPRESSION: 1. Mildly prominent right inguinal lymph node. 2. Minimal fat-containing left inguinal hernia. 3. No visualized acute process within the abdomen or pelvis. Dictated by: María Casarez M.D. on 10/17/2018 at 20:42 Approved by: María Casarez M.D. on 10/17/2018 at 20:53
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
[2018-10-17 20:08] LABS: Add Manual Diff / Slide Review NO; Basophils Percent Auto 0.8 % (0-2); Eosinophils Percent Auto 0.5 % (2-4); Hematocrit 43.1 % (41-53); Hemoglobin 14.6 g/dL (13.5-17.5); Lymphocytes Percent Auto 17.9 % (25-40); Mean Corpuscular HGB Conc 33.8 % (30-36); Mean Corpuscular Hemoglobin 29.2 PG (26-34); Mean Corpuscular Volume 86.6 fL (80-100); Monocytes Percent Auto 13.5 % (3-14); Neutrophils Absolute Auto 5300 /uL (1500-7000); Neutrophils Percent Auto 67.3 % (50-75); Platelet Count 269 X10^3/uL (150-400); Red Blood Cell Count 4.98 X10^6/uL (4.5-5.9); Red Cell Distribution Width 13.4 % (11.6-14.8); White Blood Cell Count 7.9 X10^3/uL (4.5-11.0)
[2018-10-17 20:40] LABS: Alanine Aminotransferase 23 IU/L (21-72); Albumin 4.1 g/dL (3.5-5.0); Albumin Globulin Ratio 1.4 (1.0-2.8); Alkaline Phosphatase 57 U/L (38-126); Aspartate Aminotransferase 22 IU/L (17-59); BUN Creatinine Ratio 11.4 (6-22); Bilirubin Total 0.2 mg/dL (0.2-1.3); Blood Urea Nitrogen 8 mg/dL (9-20); Calcium 9.1 mg/dL (8.4-10.2); Carbon Dioxide 27 mmol/L (22-32); Chloride 104 mmol/L (98-107); Estimated Glomerular Filt Rate > 60.0 mL/min (>60); Globulin 2.9 g/dL (1.7-4.1); Glucose 109 mg/dL (70-100); HEMOLYSIS 19 (0-50); Potassium 3.9 mmol/L (3.4-5.1); Sodium 144 mmol/L (137-145)
[2018-10-17 20:52] VITALS: BP 127/77; PULSE 79; RESP 17; O2SAT 100
[2018-10-17] MEDS: MORPHINE 4 MG/ML INJ IV (21:05)
[2018-10-17] MEDS: HYDROMORPHONE 1 MG INJ IV (21:25)
[2018-10-17 21:34] VITALS: BP 124/70; PULSE 81; RESP 18; O2SAT 100
[2018-10-17] MEDS: KETOROLAC 60 MG/2 ML VIAL 30 MG IV (21:49)
[2018-10-17 22:01] LABS: Bacteria Urine None Seen; RBC Urine None Seen (0-5/HPF); WBC Urine None Seen (0-5/HPF)
[2018-10-17 22:03] LABS: Appearance Urine UA CLEAR; Bilirubin Urine UA NEGATIVE (NEGATIVE); Color Urine UA YELLOW; Glucose Urine UA NEGATIVE (Normal); Ketones Urine UA NEGATIVE (NEGATIVE); Leukocyte Esterase Urine UA NEGATIVE (NEGATIVE); Nitrite Urine UA NEGATIVE (Negative); Occult Blood Urine UA NEGATIVE (Negative); Protein Urine UA NEGATIVE (Negative); Urobilinogen Urine UA 0.2 E.U./dL (0.2); pH Urine UA 7.5 (4.5-8.0)
[2018-10-17 22:17] LABS: Culture Indicated Urine Cult Not Indicated; Urine Comments Microscopic Normal
[2018-10-17] MEDS: HYDROCODONE/ACET 5/325 PREPACK 1 BOTTLE MISC (22:19)
[2018-10-17 23:29] LABS: Urine N gonorrhoeae NOT DETECTED
[2018-10-17 23:35] LABS: Urine Chlamydia NOT DETECTED
== END 2018-10-17 22:20 | disposition home or self-care (01) ==
PROVIDERS: Emergency Provider Emergency Medicine; Family Provider Family Medicine; PCP Family Medicine
DX: R59.0 Localized enlarged lymph nodes (principal)
CPT/HCPCS: 36591; 73562; 74177; 76870; 80053; 81001; 85025; 87491; 87591; 96374; 96375; 99282; 99285; J1170; J1885; J2270; Q9967

== ENCOUNTER 2018-12-28 10:31 | Emergency (ER) | payer OTHER, SELFPAY ==
[2018-12-28 10:36] VITALS: BP 148/96; PULSE 91; RESP 16; TEMP 37.2; O2SAT 99
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
--- NOTE | 2018-12-28 12:18 | PC.NURSE ---
Call received from Marlene, pt's mother, stating she was POA and wanting an update. Pt declined to allow us to speak with her. She was told he was not wanting to take calls at this time and to call later to see if he is was feeling better and willing to take calls.
[2018-12-28 12:23] LABS: Add Manual Diff / Slide Review NO; Basophils Absolute Auto 0 /uL (0-100); Basophils Percent Auto 0.4 % (0-2); Eosinophils Absolute Auto 100 /uL (0-450); Eosinophils Percent Auto 0.6 % (2-4); Hematocrit 45.9 % (41-53); Hemoglobin 15.1 g/dL (13.5-17.5); Lymphocytes Absolute Auto 1500 /uL (1100-4500); Lymphocytes Percent Auto 14.6 % (25-40); Mean Corpuscular Hemoglobin 29.1 PG (26-34); Mean Corpuscular Volume 88.1 fL (80-100); Monocytes Absolute Auto 500 /uL (0-900); Monocytes Percent Auto 4.9 % (3-14); Neutrophils Absolute Auto 8300 /uL (1500-7000); Neutrophils Percent Auto 79.5 % (50-75); Platelet Count 320 X10^3/uL (150-400); Red Cell Distribution Width 13.6 % (11.6-14.8); White Blood Cell Count 10.4 X10^3/uL (4.5-11.0)
[2018-12-28 12:30] VITALS: BP 144/101; PULSE 75; RESP 18; O2SAT 100
[2018-12-28 12:36] LABS: Alanine Aminotransferase 36 IU/L (21-72); Albumin 4.6 g/dL (3.5-5.0); Albumin Globulin Ratio 1.4 (1.0-2.8); Alkaline Phosphatase 74 U/L (38-126); Aspartate Aminotransferase 25 IU/L (17-59); Bilirubin Total 0.9 mg/dL (0.2-1.3); Blood Urea Nitrogen 7 mg/dL (9-20); Calcium 9.2 mg/dL (8.4-10.2); Carbon Dioxide 27 mmol/L (22-32); Chloride 101 mmol/L (98-107); Estimated Glomerular Filt Rate > 60.0 mL/min (>60); Ethanol (ETOH) < 10 mg/dL; Globulin 3.3 g/dL (1.7-4.1); Glucose 111 mg/dL (70-100); HEMOLYSIS 34 (0-50); Sodium 138 mmol/L (137-145); Total Protein 7.9 g/dL (6.3-8.2)
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
[2018-12-28 15:24] VITALS: BP 135/83; PULSE 82; RESP 14; O2SAT 100
[2018-12-28 16:52] VITALS: BP 148/72; PULSE 68; RESP 18; O2SAT 98
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
== END 2018-12-28 18:08 | disposition home or self-care (01) ==
PROVIDERS: Emergency Provider Emergency Medicine; Family Provider Family Medicine; PCP Family Medicine
DX: S06.0X9A Concussion with loss of consciousness of unspecified duration, initial encounter (principal); W30.9XXA Contact with unspecified agricultural machinery, initial encounter; F41.9 Anxiety disorder, unspecified; R45.851 Suicidal ideations
CPT/HCPCS: 36415; 70450; 80053; 80320; 85025; 99283; 99284; 99291

== ENCOUNTER 2019-07-01 18:51 | Emergency (ER) | payer OTHER, SELFPAY ==
[2019-07-01 19:00] VITALS: BP 112/62; PULSE 96; RESP 17; TEMP 36.9; O2SAT 100; BMI 33.9
--- NOTE | 2019-07-01 19:02 | ED_ITS ---
HPI - Chest Pain General Chief Complaint: Chest Pain Stated Complaint: chest pains numbness in arms Time Seen by Provider: 07/01/19 18:58 Source: patient and family Mode of arrival: ambulatory Limitations: no limitations History of Present Illness HPI narrative: 33-year-old male with history of anxiety and asthma presents with a chief complaint of left anterior chest pain is worse with a deep breath, cough and palpation. He has had upper respiratory type complaints for the past few days including runny nose, sore throat and a low-grade fever. He admittedly tends to get anxious and started hyperventilating and now has some numbness and tingling in his fingers and his face, it is resolving as he focuses on slowing his breathing. He denies nausea, vomiting or diarrhea. He denies recent travel or history of blood clot. MD complaint: chest pain Onset (ago): day(s) Duration: constant Pain location: left chest Severity: mild Quality: dull Pain radiation: none Relieving factors: nothing Exacerbating factors: inspiration and palpation Context: recent illness Associated symptoms: dyspnea Treatments prior to arrival chest pain: none Related Data Home Medications Medication Instructions Recorded Confirmed acetaminophen 650 mg PO PRN PRN #0 04/22/17 06/18/18 multivitamin [Multiple Vitamins] 1 tab PO QDAY #0 06/04/17 06/18/18 ibuprofen 800 mg PO Q8HP PRN 06/18/18 06/18/18 hydrochlorothiazide 50 mg PO DAILY 12/28/18 12/28/18 Previous Rx's Medication Instructions Recorded albuterol sulfate 90 mcg/actuation 2 puff INHALATION Q4HP PRN #1 ea 05/19/18 aerosol inhaler meloxicam 15 mg tablet 15 mg PO DAILY #30 tab 09/03/18 hydrocodone-acetaminophen 1 tab PO Q6H PRN #10 tab 10/17/18 lisinopril 40 mg tablet 40 mg PO DAILY #30 tab 10/26/18 lorazepam [Ativan] 1 mg PO BID PRN #14 tab 12/28/18 Allergies Allergy/AdvReac Type Severity Reaction Status Date / Time No Known Drug Allergies Allergy Verified 07/01/19 18:59 Review of Systems Constitutional Constitutional: Denies chills, Denies fatigue, Denies fever(s), Denies frequent falls, Denies lethargy and Denies weakness Eyes Eyes: Denies change in vision, Denies eye discharge, Denies irritation and Denies loss of vision ENT Ears, Nose, Mouth, and Throat: Denies change in voice, Denies dizziness, Denies neck pain, Denies sore throat and Denies throat swelling Cardiovascular Cardiovascular: Reports chest pain, Denies irregular heart rhythm, Denies lightheadedness, Denies palpitations, Denies dyspnea, Denies dyspnea on exertion and Denies orthopnea Respiratory Respiratory: Reports cough, Reports pain on inspiration, Reports pain with cough, Denies dyspnea, Denies dyspnea on exertion and Denies wheezing Gastrointestinal Gastrointestinal: Denies abdominal pain, Denies change in bowel habits, Denies diarrhea, Denies nausea and Denies vomiting Genitourinary Genitourinary: Denies hematuria, Denies flank pain, Denies urinary incontinence and Denies urinary urgency Musculoskeletal Musculoskeletal: Denies back pain, Denies muscle weakness, Denies neck pain, Denies numbness and Denies tingling Integumentary/Breasts Skin/Breast: Denies pruritus, Denies erythema, Denies rash and Denies wounds Neurologic Neurologic: Denies behavioral changes, Denies confusion, Denies dizziness, Denies frequent falls, Denies loss of vision, Denies numbness, Denies tingling and Denies weakness Psychiatric Psychiatric: Reports anxiety, Denies behavioral changes, Denies confusion, Denies depression, Denies homicidal ideation and Denies suicidal ideation Endocrine Endocrine: Denies fatigue, Denies flushing and Denies palpitations Hematologic/Lymphatic Hematologic/Lymphatic: Denies easy bruising Allergic/Immunologic Allergic/Immunologic: Denies urticaria, Denies throat swelling and Denies wheezing PFSH Medical History Back pain (Chronic) Neuropathy (Chronic) TBI (traumatic brain injury) (Chronic ~2008) Surgical History Anesthesia (Resolved) Crush injury of leg (Resolved) History of ankle surgery (Resolved) History of facial surgery (Resolved) History of knee replacement (~2014) Status post hip surgery (Resolved) Social History marital status: 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 Well- nourished, well-developed patient, in mild distress. Visibly Anxious HEAD: Atraumatic. Normocephalic. EYES: Pupils equal round and reactive. Extraocular motions intact. No scleral icterus. No injection or drainage. ENT: Nose without bleeding, purulent drainage. Throat without erythema, tonsil lar hypertrophy or exudate. Airway patent. NECK: Trachea midline. Non tender CARDIOVASCULAR: Left anterior chest pain with palpation Regular rate and rhythm without murmurs, gallops, or rubs. RESPIRATORY: Clear to auscultation. Breath sounds equal bilaterally. No wheezes, rales, or rhonchi. GASTROINTESTINAL: Abdomen soft, non-tender, nondistended. EXTREMITIES: No edema or joint tenderness. BACK: Nontender without deformity or crepitance. No flank tenderness. NEURO: AOx3. SKIN: No rash or erythema of visible areas Initial Vital Signs Initial Vital Signs: Vital Signs Temperature 98.5 F 07/01/19 19:00 Pulse Rate 96 H 07/01/19 19:00 Respiratory Rate 17 07/01/19 19:00 Blood Pressure 112/62 07/01/19 19:00 Pulse Oximetry 100 07/01/19 19:00 Course Orders Ordered: ED Orders 07/01/19 18:55 Complete Blood Count AUTO DIFF Stat Comprehensive Metabolic Panel Stat Lipase Stat Partial Thromboplastin Time Stat Prothrombin Time INR Stat Troponin & CK Cardiac Panel Stat 07/01/19 19:04 EKG-12 Lead Stat MDM - Chest Pain Lab Data Result diagrams: 07/01/19 18:55 07/01/19 18:55 Labs: Lab Results 07/01/19 07/01/19 07/01/19 Range/Units 18:55 18:55 18:55 WBC 10.1 (4.5-11.0) X10^3/uL RBC 5.68 (4.5-5.9) X10^6/uL Hgb 17.5 (13.5-17.5) g/dL Hct 50.3 (41-53) % MCV 88.6 (80-100) fL MCH 30.8 (26-34) PG MCHC 34.7 (30-36) % RDW 12.4 (11.6-14.8) % Plt Count 405 H (150-400) X10^3/uL Neut % (Auto) 62.3 (50-75) % Lymph % (Auto) 25.5 (25-40) % Avery % (Auto) 10.7 (3-14) % Eos % (Auto) 0.4 L (2-4) % Baso % (Auto) 1.1 (0-2) % Neut # (Auto) 6300 (2011-3517) /uL Lymph # (Auto) 2600 (1349-5730) /uL Avery # (Auto) 1100 H (0-900) /uL Eos # (Auto) 0 (0-450) /uL Baso # (Auto) 100 (0-100) /uL PT 12.5 (10.1-12.7) SECONDS INR 1.1 (0.9-1.3) APTT 34 (26.4-36.2) SECONDS Sodium 140 (137-145) mmol/L Potassium 3.4 (3.4-5.1) mmol/L Chloride 103 (98-107) mmol/L Carbon Dioxide 22 (22-32) mmol/L BUN 17 (9-20) mg/dL Creatinine 1.00 (0.66-1.25) mg/dL Estimated GFR > 60.0 (>60) mL/min BUN/Creatinine Ratio 17.0 (6-22) Glucose 120 H (70-100) mg/dL Calcium 10.4 H (8.4-10.2) mg/dL Total Bilirubin 1.7 H (0.2-1.3) mg/dL AST 33 (17-59) IU/L ALT 29 (21-72) IU/L Alkaline Phosphatase 97 (38-126) U/L Total Creatine Kinase 127 (55-170) U/L CK-MB (CK-2) 1.46 (<2.37) ng/mL CK-MB (CK-2) Rel Index 1.1 L (1.5-5.0) % Troponin I < 0.012 (0.01-0.034) ng/mL Total Protein 8.6 H (6.3-8.2) g/dL Albumin 5.0 (3.5-5.0) g/dL Globulin 3.6 (1.7-4.1) g/dL Albumin/Globulin Ratio 1.4 (1.0-2.8) Lipase 56 (23-300) U/L ECG Data Attestation: I personally reviewed and interpreted this ECG as follows: Prior ECG tracings: not available for review MDM Narrative Medical decision making narrative: soon after initial exam patient eloped. PD were notified as he has IV in place. Discharge Plan Departure Patient Disposition: Left Against Medical Advice Clinical Impression: Left against medical advice Discharge Date/Time: 07/01/19 19:38 Prescriptions: No Action acetaminophen 650 MG tablet extended release 650 mg PO PRN PRN (Reason: pain) Qty: 0 RF: 0 multivitamin [Multiple Vitamins] 1 EACH tablet 1 tab PO QDAY Qty: 0 RF: 0 meloxicam 15 mg tablet 15 mg PO DAILY Qty: 30 RF: 0 lisinopril 40 mg tablet 40 mg PO DAILY Qty: 30 RF: 0 albuterol sulfate [Ventolin HFA] 90 mcg/actuation HFA aerosol inhaler 2 puff INHALATION Q4HP PRN (Reason: shortness of breath) Qty: 1 RF: 1 ibuprofen 800 MG tablet 800 mg PO Q8HP PRN (Reason: Pain (Scale Score 1-3)) RF: 0 hydrocodone-acetaminophen 5-325 mg tablet 1 tab PO Q6H PRN (Reason: pain) Qty: 10 RF: 0 hydrochlorothiazide 50 MG tablet 50 mg PO DAILY RF: 0 lorazepam [Ativan] 1 mg tablet 1 mg PO BID PRN (Reason: anxiety) Qty: 14 RF: 0 Stand Alone Forms: Against Medical Advice
[2019-07-01 19:15] LABS: INR 1.1 (0.9-1.3); Prothrombin Time 12.5 SECONDS (10.1-12.7)
[2019-07-01 19:18] LABS: PTT Partial Thromboplastin Tim 34 SECONDS (26.4-36.2)
[2019-07-01 19:19] LABS: Alanine Aminotransferase 29 IU/L (21-72); Albumin Globulin Ratio 1.4 (1.0-2.8); Alkaline Phosphatase 97 U/L (38-126); Aspartate Aminotransferase 33 IU/L (17-59); Bilirubin Total 1.7 mg/dL (0.2-1.3); Blood Urea Nitrogen 17 mg/dL (9-20); Calcium 10.4 mg/dL (8.4-10.2); Carbon Dioxide 22 mmol/L (22-32); Chloride 103 mmol/L (98-107); Creatine Kinase 127 U/L (55-170); Estimated Glomerular Filt Rate > 60.0 mL/min (>60); Globulin 3.6 g/dL (1.7-4.1); Glucose 120 mg/dL (70-100); HEMOLYSIS < 15 (0-50); Lipase 56 U/L (23-300); Potassium 3.4 mmol/L (3.4-5.1); Sodium 140 mmol/L (137-145); Total Protein 8.6 g/dL (6.3-8.2)
[2019-07-01 19:25] LABS: Add Manual Diff / Slide Review NO; Basophils Absolute Auto 100 /uL (0-100); Basophils Percent Auto 1.1 % (0-2); Eosinophils Absolute Auto 0 /uL (0-450); Eosinophils Percent Auto 0.4 % (2-4); Hematocrit 50.3 % (41-53); Hemoglobin 17.5 g/dL (13.5-17.5); Lymphocytes Absolute Auto 2600 /uL (1100-4500); Lymphocytes Percent Auto 25.5 % (25-40); Mean Corpuscular HGB Conc 34.7 % (30-36); Mean Corpuscular Hemoglobin 30.8 PG (26-34); Mean Corpuscular Volume 88.6 fL (80-100); Monocytes Absolute Auto 1100 /uL (0-900); Monocytes Percent Auto 10.7 % (3-14); Neutrophils Absolute Auto 6300 /uL (1500-7000); Neutrophils Percent Auto 62.3 % (50-75); Platelet Count 405 X10^3/uL (150-400); Red Blood Cell Count 5.68 X10^6/uL (4.5-5.9); Red Cell Distribution Width 12.4 % (11.6-14.8); White Blood Cell Count 10.1 X10^3/uL (4.5-11.0)
[2019-07-01 19:30] LABS: Troponin I < 0.012 ng/mL (0.01-0.034)
[2019-07-01 19:35] LABS: CKMB % Relative Index 1.1 % (1.5-5.0); Creatine Kinase MB 1.46 ng/mL (<2.37)
--- NOTE | 2019-07-01 19:36 | PC.NURSE ---
Pt arrived and was evaluated by Dr Riley. IV was placed and orders were obtained. RT in the room for EKG and pt not in room. pt not in bathrooms and not seen around department. [employer] was notified by DANII Delgado due to pt having IV access.
== END 2019-07-01 19:38 | disposition left against medical advice (07) ==
PROVIDERS: Emergency Provider Emergency Medicine
DX: R07.9 Chest pain, unspecified (principal); Z53.21 Procedure and treatment not carried out due to patient leaving prior to being seen by health care provider
CPT/HCPCS: 80053; 82550; 82553; 83690; 84484; 85025; 85610; 85730; 93005; 99282; 99284

== ENCOUNTER 2019-08-06 19:53 | Emergency (ER) | payer OTHER, SELFPAY ==
[2019-08-06 19:56] VITALS: BP 157/111; PULSE 130; RESP 22; TEMP 37.1; O2SAT 100
--- NOTE | 2019-08-06 19:59 | DI.RAD.S_ITS ---
PROCEDURE: XR CHEST 2V INDICATIONS: cough TECHNIQUE: 2 views of the chest were acquired. COMPARISON: [facility], CR, XR CHEST 2V, 03/28/2018, 10:33. FINDINGS: Surgical changes and devices: None. Lungs and pleura: Lungs are clear. No pleural effusions or pneumothorax. Mediastinum: Mediastinal contours are normal. Heart size is normal. Bones and chest wall: No suspicious bony abnormalities. Soft tissues appear unremarkable. IMPRESSION: No acute pulmonary process. Dictated by: María Casarez M.D. on 08/06/2019 at 20:20 Approved by: María Casarez M.D. on 08/06/2019 at 20:20
--- NOTE | 2019-08-06 23:55 | PC.NURSE ---
I notified him of reason for wait at approx. 2004.I was unable to locate him in waiting room at 2129.
== END 2019-08-07 00:19 | disposition left against medical advice (07) ==
PROVIDERS: Emergency Provider Emergency Medicine
DX: R05 Cough (principal)
CPT/HCPCS: 71046; 99282

== ENCOUNTER 2020-09-09 20:11 | Emergency (ER) | payer OTHER, SELFPAY ==
[2020-09-09] VITALS (13 sets, daily range): BP systolic 103–153; BP diastolic 61–91; PULSE 98–112; RESP 12–25; TEMP 36.1; O2SAT 95–99; BMI 35.2
--- NOTE | 2020-09-09 20:42 | DI.RAD.S_ITS ---
PROCEDURE: XR WRIST RT MIN 3V INDICATIONS: wrist injury after 3 ft fall TECHNIQUE: 3 views of the wrist were acquired. COMPARISON: None. FINDINGS: Bones: There is a comminuted, mildly displaced intra-articular fracture of the distal radius extending into the radiocarpal and distal radial ulnar joints. There is dorsal angulation of the distal articular surface and mild impaction of osseous fragments. There is resulting positive ulnar variance. A minimally displaced ulnar styloid fracture is also present. No suspicious bony lesions. Soft tissues: Soft tissue edema is seen surrounding the wrist. IMPRESSION: Comminuted mildly displaced intra-articular fracture of the distal radius with dorsal angulation and impaction of the distal fracture fragments. Minimally displaced ulnar styloid fracture is also noted. Dictated by: Glenn Olivia M.D. on 09/09/2020 at 20:55 Approved by: Glenn Olivia M.D. on 09/09/2020 at 20:57
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
--- NOTE | 2020-09-09 22:06 | DI.RAD.S_ITS ---
PROCEDURE: XR WRIST RT MIN 3V INDICATIONS: post reduction TECHNIQUE: 2 views of the wrist were acquired. COMPARISON: [facility], , XR WRIST RT MIN 3V, 09/09/2020, 20:47. FINDINGS: A splint is present, obscuring fine bony detail. Bones: There is a comminuted fracture of the distal radius with articular surface extension to the radiocarpal joint, as before. Previously seen displacement and angulation has decreased. Mildly displaced fracture of the distal ulna is present. Scaphoid view: Not requested Soft tissues: No suspicious soft tissue calcifications. IMPRESSION: Improved alignment of distal radial and ulnar fractures. Dictated by: Glen Gil M.D. on 09/10/2020 at 7:13 Approved by: Glen Gil M.D. on 09/10/2020 at 7:15
[2020-09-09] MEDS: propofoL 200 MG/20 ML VIAL IV (22:20)
--- NOTE | 2020-09-09 22:54 | DI.CT.S_ITS ---
PROCEDURE: CT UE RT WO CON INDICATIONS: distal ridius fx requested by ortho TECHNIQUE: Noncontrast 1 mm axial sections acquired through the carpal bones, with coronal and sagittal reformats. COMPARISON: [facility], CT, CT UE RT WO CON, 08/13/2015, 10:24. [facility], CR, XR WRIST RT MIN 3V, 09/09/2020, 22:08. None FINDINGS: Image quality: Excellent. Bones: There is a moderately impacted and displaced comminuted fracture of the distal radius. Mildly displaced fracture of the distal ulna which is comminuted. Soft tissues: Grossly unremarkable IMPRESSION: Distal radial and ulnar fractures as described above. Concordant with preliminary interpretation. Dictated by: Glen Gil M.D. on 09/10/2020 at 7:17 Approved by: Glen Gil M.D. on 09/10/2020 at 7:18
[2020-09-09] MEDS: HYDROCODONE/ACET 5/325 PREPACK 1 BOTTLE MISC (23:33)
== END 2020-09-09 23:45 | disposition home or self-care (01) ==
PROVIDERS: Emergency Provider Emergency Medicine
DX: S52.501A Unspecified fracture of the lower end of right radius, initial encounter for closed fracture (principal); S52.614A Nondisplaced fracture of right ulna styloid process, initial encounter for closed fracture; W19.XXXA Unspecified fall, initial encounter
CPT/HCPCS: 25605; 29105; 36415; 73110; 73200; 94770; 99152; 99153; 99284; 99285; J2704

== ENCOUNTER → 2020-09-18 14:24 | Outpatient (CLI) | payer OTHER, SELFPAY ==
[2020-09-18 16:30] LABS: COVID19 -Nasal RAPID Negative (Negative)
== END ==
PROVIDERS: Visit Provider Physician Assistant
DX: Z11.59 Encounter for screening for other viral diseases (principal)
CPT/HCPCS: 87635

== ENCOUNTER 2020-09-19 08:40 | Day surgery (SDC) | payer OTHER, SELFPAY ==
[2020-09-15 15:20] VITALS: BMI 38.6
[2020-09-19] VITALS (12 sets, daily range): BP systolic 90–178; BP diastolic 46–110; PULSE 86–100; RESP 12–27; TEMP 36.4–36.9; O2SAT 93–100; BMI 36.9
[2020-09-19] MEDS: LACTATED RINGERS 1,000 ML 42 ML IV (09:21)
--- NOTE | 2020-09-19 09:35 | PM.PREOP ---
Pre-operative Note COVID-19 COVID-19 status: Negative Result date/Date tested (Pos, Neg/Pending): 09/17/20 Interval Note History & Physical reviewed/Exam performed by Physician: Yes Changes to H&P: No
--- NOTE | 2020-09-19 10:06 | SUR.OPER ---
Supine on padded OR bed, head on pillow, left arm secured on padded arm boards at <90 degrees abduction, right arm prepped into field and supported on hand table, legs uncrossed, safety belt at thigh, tape over blanket over lower legs.
[2020-09-19] MEDS: CEFAZOLIN 2 GM/100 ML FROZ.PIGGY IV (10:40)
[2020-09-19] MEDS: BUPIVACAINE 0.25% W/ EPI (PF) 10 ML VIAL 20 ML INJ (11:07)
[2020-09-19] MEDS: fentaNYL 100 MCG/2 ML INJ IV ×2 (12:29→12:44)
--- NOTE | 2020-09-19 12:33 | P.OP_ITS ---
Operative Date/Time/Diagnoses Date of procedure: 09/19/20 Time of procedure: 11:00 Pre-op diagnosis: Right intra-articular distal radius fracture Post-op diagnosis: same Procedure & Clinicians Procedure: Right open reduction internal fixation of an intra-articular distal radius fracture Same procedure as scheduled: Yes Indications: Highly comminuted intra-articular distal radius fracture Surgeon: Shaggy Cardona Click Yes if Unassisted: Yes Anesthesia Type: General Operative Notes Findings: Highly comminuted intra-articular distal radius fracture. There is jugular surface was in multiple columns. Patient had a radial volar column fragment as well as a ulnar volar column fragment. There was also another split the volar and dorsal fragments. Patient radial and ulnar dorsal c olumn fragments that were as well. Main fracture line through the articular surface splitting the radial and ulnar aspects of the distal radius as well as another fracture line 90? of that the volar and dorsal articular surfaces. Closure Type: primary Specimen(s): none sent Estimated Blood Loss (mL): 10 Blood products transfused: none Tourniquet time (min): 70 Procedure in detail: On date of service, patient was met in the holding area where the operative site was signed and witnessed by the OR staff. The surgery was once again discussed with the patient and any remaining questions or concerns were answered to the patient's full satisfaction. Time-out was performed verifying patient's name procedure and operative site. Patient was taken back to the operating theater and placed on the operating ta ble in a supine position. Great care was taken to ensure that all bony prominences were appropriately padded. Well-padded tourniquet was placed up along the upper extremity. Another time-out was performed verifying patient's name, procedure, and operative site. The upper extremity was then prepped and draped in the normal sterile fashion. Esmarch was used to exsanguinate the limb and the tourniquet was turned up to 250 mm of mercury. Fifteen blade was used to expose the distal radius. An incision was made over the FCR tendons. The FCR tendon was retracted and the floor of the tendon was opened with a 15 blade. The FPL tendon and muscle belly was retracted ulnarly giving us good visualization of the pronator quadratus. The pronator quadratus was excised off the distal radius using the 15 blade and then finished with a periosteal elevator. Next the brachia radialis attachment to the radial styloid was released to help with overall reduction. Retractors were placed allowing us good visualization of the distal radius as well as the shaft. We had good visualization of the radial and ulnar volar column fragments. The radial styloid fragment was reduced back to the shaft and held provisionally with a K- wire. Next, the volar ulnar column fragment was reduced and held with a K-wire. Third K-wire was placed between the radial and ulnar fragments creating them into 1 large piece which was then reduced and held with a K-wire to the shaft. The dorsal column fragments were also reduced and held provisionally with K- wires. C-arm was brought in to verify overall reduction. Once we were satisfied with the overall reduction, a plate was placed and held provisionally with K-wires. C-arm was once again used to verify plate positioning as well as reduction. The plate was then fixated to the distal fragment using locking screws. We made sure we had good screw fixation into the multiple different fragments. Lateral C-arm views were used to verify that the screws were not intra-articular or broaching the dorsal cortex. At this point we are able to use the plate to help fine tune the overall reduction. Once we were satisfied with the overall reduction the plate was then secured to the shaft with a combination of locking and nonlocking screws. Final x-rays were obtained. The wound was copiously irrigated and closed in a layered fashion. The wrist and hand were cleaned dried dressed. Patient was placed into a splint and taken to the PACU in stable condition. Complications: none Post-operative Condition: stable Disposition: PACU Plan for aftercare: Patient will come out of his splint early next week. He wi ll be placed into a removable brace. At that point, patient can engage in this range of motion exercises of the radial carpal joint.
[2020-09-19] MEDS: OXYCODONE IR 5 MG TABLET PO (12:40)
[2020-09-19] MEDS: LORazepam 2 MG/ML INJ 0.25 MG IV (12:46)
[2020-09-19] MEDS: HYDROMORPHONE 1 MG INJ IV (12:58)
[2020-09-19] MEDS: OXYCODONE/ACETAMINOPHEN 5/325 TABLET 1 TAB PO (13:08)
--- NOTE | 2020-09-19 13:31 | SUR.PHASEI ---
Talked to Dr. Crane regarding pt's increased blood pressure. MD does not want to do anything at the present time. Pt has also had a total of 2 mg of dilaudid, 200 mcg of Fentanyl and 1 percolone and 1 percocett. Also , Ativan 0.25 mg IV. MD aware of pt's medications and pain tolerance.MD is going to order Toradol and pt's pain is a 5 and he states he lives at a 4-5 chronic pain.
[2020-09-19] MEDS: KETOROLAC 30 MG/ML VIAL IV (13:42)
== END 2020-09-19 14:00 | disposition home or self-care (01) ==
PROVIDERS: Referring Provider Orthopaedic Surgery; Visit Provider Orthopaedic Surgery
PROC: (CPT 25609; principal; 2020-09-19 10:00)
DX: S52.571A Other intraarticular fracture of lower end of right radius, initial encounter for closed fracture (principal); W17.89XA Other fall from one level to another, initial encounter
CPT/HCPCS: 25609; J0690; J1100; J1170; J1885; J2060; J2250; J2405; J2704; J3010

== ENCOUNTER 2020-09-21 09:56 | Emergency (ER) | payer OTHER, SELFPAY ==
[2020-09-21 10:03] VITALS: BP 169/123; PULSE 88; RESP 20; TEMP 36.9; O2SAT 98; BMI 36.4
--- NOTE | 2020-09-21 10:17 | ED.GENADULT ---
HPI - General Adult General Chief complaint: Extremity Injury, Upper Stated complaint: surgery couple days ago pain out of control Time Seen by Provider: 09/21/20 10:08 Source: patient Mode of arrival: Ambulatory Limitations: no limitations History of Present Illness HPI narrative: Patient is a 34-year-old male who 2 days ago underwent a fixation of a distal radius fracture. Sent home with pain medication. He states since then he has had an increasing amount of pain and throbbing in his right arm. Has been taking the pain medication he was prescribed but reports it has only helped minimally. No fevers. Related Data Home Medications Medication Instructions Recorded Confirmed acetaminophen 650 mg PO PRN PRN #0 04/22/17 09/15/20 multivitamin [Multiple Vitamins] 1 tab PO QDAY #0 06/04/17 09/19/20 ibuprofen 800 mg PO Q8HP PRN 06/18/18 09/19/20 Previous Rx's Medication Instructions Recorded albuterol sulfate 90 mcg/actuation 2 puff INHALATION Q4HP PRN #1 ea 05/19/18 aerosol inhaler hydrocodone-acetaminophen [[place]] 1 tab PO Q4-6H PRN #10 tab 09/09/20 hydroxyzine pamoate [Vistaril] 25 mg PO TID-QID PRN #60 cap 09/19/20 oxycodone-acetaminophen [Percocet] 2 tab PO Q4-6H PRN #30 tab 09/19/20 oxycodone-acetaminophen [Percocet] 1 tab PO Q4-6H PRN #20 tab 09/21/20 Allergies Allergy/AdvReac Type Severity Reaction Status Date / Time No Known Drug Allergies Allergy Verified 09/19/20 08:51 Review of Systems Constitutional Constitutional: Denies fever(s) Musculoskeletal Comments: Right wrist/arm/hand pain Integumentary/Breasts Comments: Redness to the fingers of his right hand Neurologic Neurologic: Denies behavioral changes Psychiatric Psychiatric: Denies behavioral changes Hematologic/Lymphatic Hematologic/Lymphatic: Denies easy bleeding and Denies easy bruising Patient History Medical History Back pain Neuropathy TBI (traumatic brain injury) (~2008) Surgical History Anesthesia Crush injury of leg History of ankle surgery History of facial surgery History of knee replacement (~2014) Status post hip surgery Social History marital status: household members: spouse 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) Smoking Status: Former smoker alcohol intake: current substance use type: marijuana Smoking Status: Former smoker tobacco type: vaping alcohol intake frequency: a few times a week Substance Use Type: marijuana Exam Initial Vital Signs Initial Vital Signs: Vital Signs Temperature 98.4 F 09/21/20 10:03 Pulse Rate 88 09/21/20 10:03 Respiratory Rate 20 09/21/20 10:03 Blood Pressure 169/123 H 09/21/20 10:03 Pulse Oximetry 98 09/21/20 10:03 Const General: cooperative, healthy appearing and No comfortable (Uncomfortable) HENMT Head: normal to inspection and normocephalic Resp Effort & Inspection: normal respiratory effort Cardio Pulses: radial pulses present on the right Skin Other: Portions of surgical incision look well. Extrem Other: Initially splint was then placed. I did remove the Matteo bandage in the splint and portions of the surgical incision that were visualized look well. Psych Appearance: grossly normal and well kempt Course Orders Ordered: Discontinued Medications Hydromorphone HCl (Hydromorphone 1 Mg Inj) 1 mg IM NOW ONE Stop: 09/21/20 10:18 Last Admin: 09/21/20 10:29 Dose: 1 mg Documented by: LOIS Vital Signs Vital signs: Vital Signs - 8 hr 09/21/20 10:03 09/21/20 10:21 09/21/20 11:47 Temperature 98.4 F Pulse Rate 88 89 Pulse Rate [Right Radial] 88 Respiratory Rate 20 16 Blood Pressure 169/123 H 156/80 H Pulse Oximetry 98 99 Medical Decision Making MDM Narrative Medical decision making narrative: Patient did report some improvement after we loosen the Matteo bandage and the soft roll underneath however still was having quite a bit of discomfort. He did have significant swelling of the hand of his fingers however he was intact to light touch. Had good pulses with brisk capillary refill. Could move his fingers. I suspect his symptoms are normal postoperative pain in combination with a tight splint and also the swelling. I replaced the splint in the Matteo bandage very loosely. I did inform him that on Friday he needed to contact his operative surgeon for re-evaluation as they may need to readjust the Matteo bandage as the swelling decreases. Also informed him that he needs to keep his hand elevated. I have low suspicion for surgical infection. Low suspicion for compartment syndrome. Patient was given return precautions. I did refill his pain medicine. He expressed understanding and agreement. Discharge Plan Departure Patient Disposition: Home Clinical Impression: Post-operative pain Instructions: How to Take Care of Your Splint Activity Restrictions/Additional Instructions: I recommend that on Friday you contact the [facility] at [phone] to let them know you were here in the emergency department and we loosened your splint. This may need to be re-evaluated by them and readjusted. Until then keep your hand elevated as much as possible. Follow all of your postoperative instructions given to by the orthopedic surgeon return to the emergency department for any new or worsening symptoms Prescriptions: New oxycodone-acetaminophen [Percocet] 5-325 mg tablet 1 tab PO Q4-6H PRN (Reason: pain) Qty: 20 RF: 0 No Action acetaminophen 650 MG tablet extended release 650 mg PO PRN PRN (Reason: pain) Qty: 0 RF: 0 multivitamin [Multiple Vitamins] 1 EACH tablet 1 tab PO QDAY Qty: 0 RF: 0 albuterol sulfate [Ventolin HFA] 90 mcg/actuation HFA aerosol inhaler 2 puff INHALATION Q4HP PRN (Reason: shortness of breath) Qty: 1 RF: 1 hydrocodone-acetaminophen [[place]] 5-325 mg tablet 1 tab PO Q4-6H PRN (Reason: pain) Qty: 10 RF: 0 hydroxyzine pamoate [Vistaril] 25 mg capsule 25 mg PO TID-QID PRN (Reason: spasms) Qty: 60 RF: 0 oxycodone-acetaminophen [Percocet] 5-325 mg tablet 2 tab PO Q4-6H PRN (Reason: pain) Qty: 30 RF: 0 ibuprofen 800 MG tablet 800 mg PO Q8HP PRN (Reason: Pain (Scale Score 1-3)) RF: 0
[2020-09-21 10:21] VITALS: PULSE 88
[2020-09-21] MEDS: HYDROMORPHONE 1 MG INJ IM (10:29)
[2020-09-21 11:47] VITALS: BP 156/80; PULSE 89; RESP 16; O2SAT 99
== END 2020-09-21 11:47 | disposition home or self-care (01) ==
PROVIDERS: Emergency Provider Emergency Medicine
DX: G89.18 Other acute postprocedural pain (principal)
CPT/HCPCS: 96372; 99281; 99283; STOP; J1170

== ENCOUNTER 2020-11-22 18:27 | Inpatient (IN) | payer OTHER, SELFPAY ==
[2020-11-22] VITALS (13 sets, daily range): BP systolic 112–175; BP diastolic 81–103; PULSE 92–121; RESP 15–27; TEMP 37–37.1; O2SAT 95–100; BMI 35.2; BMI 35.6
[2020-11-22 19:10] LABS: Add Manual Diff / Slide Review NO; Basophils Absolute Auto 100 /uL (0-100); Basophils Percent Auto 0.9 % (0-2); Eosinophils Absolute Auto 0 /uL (0-450); Eosinophils Percent Auto 0.2 % (2-4); Hematocrit 48.3 % (41-53); Hemoglobin 16.2 g/dL (13.5-17.5); Lymphocytes Absolute Auto 3700 /uL (1100-4500); Mean Corpuscular HGB Conc 33.5 % (30-36); Mean Corpuscular Hemoglobin 28.9 PG (26-34); Mean Corpuscular Volume 86.2 fL (80-100); Monocytes Absolute Auto 1000 /uL (0-900); Monocytes Percent Auto 8.2 % (3-14); Neutrophils Absolute Auto 7400 /uL (1500-7000); Neutrophils Percent Auto 60.7 % (50-75); Platelet Count 430 X10^3/uL (150-400); Red Cell Distribution Width 12.8 % (11.6-14.8); White Blood Cell Count 12.3 X10^3/uL (4.5-11.0)
[2020-11-22] MEDS: SODIUM CHLORIDE 0.9% 1,000 ML 1000 ML IV (19:12)
[2020-11-22] MEDS: ONDANSETRON 4 MG/2 ML INJ IV (19:12)
[2020-11-22 19:17] LABS: Alanine Aminotransferase 49 IU/L (<50); Albumin 4.5 g/dL (3.5-5.0); Albumin Globulin Ratio 1.5 (1.0-2.8); Alkaline Phosphatase 104 U/L (38-126); Aspartate Aminotransferase 34 IU/L (17-59); BUN Creatinine Ratio 12.6 (6-22); Bilirubin Total 0.4 mg/dL (0.2-1.3); Blood Urea Nitrogen 11 mg/dL (9-20); Carbon Dioxide 24 mmol/L (22-32); Chloride 102 mmol/L (98-107); Estimated Glomerular Filt Rate > 60.0 mL/min (>60); Globulin 3.1 g/dL (1.7-4.1); Glucose 107 mg/dL (70-100); HEMOLYSIS 16 (0-50); Potassium 3.5 mmol/L (3.4-5.1); Sodium 137 mmol/L (137-145); Total Protein 7.6 g/dL (6.3-8.2)
[2020-11-22 19:24] LABS: Acetaminophen < 10 ug/mL (10-30); Ethanol (ETOH) 98 mg/dL; Salicylate < 1.0 mg/dL (<20)
[2020-11-22 19:48] LABS: Free T4, Direct Thyroxine 1.13 ng/dL (0.78-2.19)
[2020-11-22 20:01] LABS: Thyroid Stimulating Hormone 1.34 uIU/mL (0.47-4.68)
--- NOTE | 2020-11-22 20:37 | ED_ITS ---
HPI - General Adult General Chief complaint: Toxicology Problem Stated complaint: states detox from ETOH, need help Time Seen by Provider: 11/22/20 20:17 Source: patient Mode of arrival: Ambulatory Limitations: no limitations History of Present Illness HPI narrative: Patient is a 34-year-old male. Admits to being an alcoholic it does not care this specific diagnosis is he has not sought any help for his alcohol issues up to this point. He does have a history PTSD and traumatic brain injury secondary to his time in the . He is here with his for evaluation of his alcohol use and to seek treatment. Patient states that he has been drinking on a daily basis for years. He does state that he no longer gets drunk when he drinks. He did report that yesterday he did have a full day of drinking however today only took ?sips ?he does not know when his last ?step ?was today. Two weeks ago he attempted to stop drinking at home and had a seizure. According to the patient and his he does have a underlying seizure issue. He states that he has been diagnosed with multiple sclerosis based off of head CTs. He states that his seizures were because of his traumatic head injury. He does not currently see a neurologist. Is not currently on any seizure medications. Patient states that every time in the past that he has attempted to stop drinking he has had a seizure at home. He denies any other toxic ingestions. He does smoke marijuana. Related Data Home Medications Medication Instructions Recorded Confirmed acetaminophen 650 mg PO PRN PRN #0 04/22/17 11/22/20 multivitamin [Multiple Vitamins] 1 tab PO QDAY #0 06/04/17 11/22/20 ibuprofen 800 mg PO Q8HP PRN 06/18/18 11/22/20 Previous Rx's Medication Instructions Recorded albuterol sulfate 90 mcg/actuation 2 puff INHALATION Q4HP PRN #1 ea 05/19/18 aerosol inhaler Allergies Allergy/AdvReac Type Severity Reaction Status Date / Time No Known Drug Allergies Allergy Verified 09/19/20 08:51 Review of Systems Constitutional Constitutional: Denies fever(s) and Reports headache(s) ENT Ears, Nose, Mouth, and Throat: Reports headache(s) Cardiovascular Cardiovascular: Denies chest pain, Reports rapid heart rate and Denies dyspnea Respiratory Respiratory: Denies cough and Denies dyspnea Gastrointestinal Gastrointestinal: Denies abdominal pain and Reports nausea Musculoskeletal Musculoskeletal: Denies arthralgias, Denies myalgias and Reports tingling Integumentary/Breasts Skin/Breast: Denies lesions and Denies rash Neurologic Neurologic: Denies vertigo, Reports headache(s), Reports restless legs, Reports seizure-like activity, Reports tingling and Reports tremor(s) Psychiatric Psychiatric: Reports anxiety, Reports irritability, Reports mood swings, Reports visual hallucinations, Denies homicidal ideation and Denies suicidal ideation Hematologic/Lymphatic On Anticoagulants: No Allergic/Immunologic Allergic/Immunologic: Denies urticaria Patient History Medical History Back pain Neuropathy TBI (traumatic brain injury) (~2008) Surgical History Anesthesia Crush injury of leg History of ankle surgery History of facial surgery History of knee replacement (~2014) Status post hip surgery Social History marital status: household members: spouse 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) Smoking Status: Former smoker alcohol intake: current substance use type: marijuana Smoking Status: Former smoker tobacco type: vaping alcohol intake frequency: a few times a week Substance Use Type: marijuana Exam Initial Vital Signs Initial Vital Signs: Vital Signs Temperature 98.8 F 11/22/20 18:31 Pulse Rate 121 H 11/22/20 18:31 Respiratory Rate 20 11/22/20 18:31 Blood Pressure 112/81 11/22/20 18:31 Pulse Oximetry 98 11/22/20 18:31 Const General: cooperative and No comfortable (Uncomfortable) Limitations: mental status not altered [facility] Head: normal to inspection and normocephalic Nose: external nose normal Resp Effort & Inspection: normal respiratory effort Auscultation: clear to auscultation bilaterally Cardio Rate: tachycardic Rhythm: regular rhythm GI Inspection: non-distended Palpation: soft and No tender Skin Lesions: no lesions Rashes: no rashes Neuro General: patient alert, patient awake and patient oriented x3 Cognition: normal cognition Speech: speech normal Sensory Exam: no sensory deficits noted Extrem General: capillary refill normal Psych Appearance: well kempt Speech and Movement: restless Mood: anxious mood Affect: anxious affect Attitude: cooperative Thought Content: hallucinations and suicidality Scores GCS Girish coma scale eye opening: Spontaneous Girish coma scale verbal response: Orientated [place] coma scale motor response: Obey commands Girish coma scale total score: 15 Course Orders Ordered: ED Orders 11/22/20 15:53 Acetaminophen Stat Comprehensive Metabolic Panel Stat Ethanol (ETOH) Stat Free T4, Direct Thyroxine Stat Salicylate Stat Thyroid Stimulating Hormone Stat 11/22/20 18:54 Complete Blood Count AUTO DIFF Stat 11/22/20 21:01 Consult to Dietitian, Adult Routine 11/22/20 21:36 Urine Drug Screen, Rapid Stat 11/23/20 05:00 Complete Blood Count AUTO DIFF DAILY Comprehensive Metabolic Panel DAILY Magnesium Routine Albuterol (Albuterol Hfa Mdi 60 Puff/8 Gm Inhaler) 2 puff INH RTQ4HR PRN PRN Reason: SHORTNESS OF BREATH Bisacodyl (Bisacodyl 5 Mg Tablet) 10 mg PO DAILY PRN PRN Reason: Constipation Enoxaparin Sodium (Enoxaparin 40 Mg/0.4 Ml Syringe) 40 mg SUBCUT DAILY MADALYN Folic Acid (Folic Acid 1 Mg Tablet) 1 mg PO DAILY MADALYN Hydroxyzine Pamoate (Hydroxyzine Pamoate 25 Mg Capsule) 25 mg PO QID PRN PRN Reason: SPASM Magnesium Sulfate 2 gm/ Folic Acid 1 mg/ Thiamine HCl 100 mg / Multivitamins 10 ml/ Sodium Chloride 1,015.2 mls @ 125 mls/hr IV NOW ONE Stop: 11/23/20 04:45 Last Admin: 11/22/20 21:14 Dose: 125 mls/hr Documented by: KAE Dextrose/Sodium Chloride (Dextrose 5%-0.9% Ns) 1,000 mls @ 100 mls/hr IV CONT MADALYN Ibuprofen (Ibuprofen 400 Mg Tablet) 800 mg PO Q6HR PRN PRN Reason: Pain, Mild (1-3) Last Admin: 11/22/20 23:06 Dose: 800 mg Documented by: HILARIO Lorazepam (Lorazepam 2 Mg/Ml Inj) 2.4 mg 0.02 mg/kg (2.4 mg) IV Q6HR PRN PRN Reason: Sedation Lorazepam (Lorazepam 2 Mg/Ml Inj) 0 mg IV CIWAPRN PRN; Protocol PRN Reason: Alcohol Withdrawal Last Admin: 11/22/20 23:55 Dose: 2 mg Documented by: Admin: 11/22/20 22:30 Dose: 1 mg Documented by: HILARIO Multivitamins (Multivitamin 1 Tablet) 1 tab PO DAILY [facility] Naloxone HCl (Naloxone 0.4 Mg/Ml Vial) 0.2 mg IV Q2MIN PRN PRN Reason: Opiate Reversal Ondansetron HCl (Ondansetron 4 Mg/2 Ml Inj) 4 mg IV Q6HR PRN PRN Reason: Nausea And Vomiting Thiamine HCl (Thiamine 100 Mg Tablet) 100 mg PO DAILY [facility] Stop: 11/26/20 09:01 Discontinued Medications Sodium Chloride (Normal Saline 0.9%) 1,000 mls @ 1,000 mls/hr IV BOLUS ONE Stop: 11/22/20 19:56 Last Infusion: 11/22/20 21:35 Dose: 0 mls/hr Documented by: Admin: 11/22/20 19:12 Dose: 1,000 mls/hr Documented by: OMER Ketorolac Tromethamine (Ketorolac 60 Mg/2 Ml Vial) 30 mg IV NOW ONE Stop: 11/22/20 21:08 Last Admin: 11/22/20 21:19 Dose: 30 mg Documented by: KAE Lorazepam (Lorazepam 2 Mg/Ml Inj) 1 mg IV NOW ONE Stop: 11/22/20 20:59 Last Admin: 11/22/20 21:13 Dose: 1 mg Documented by: KAE Ondansetron HCl (Ondansetron 4 Mg/2 Ml Inj) 4 mg IV NOW ONE Stop: 11/22/20 18:58 Last Admin: 11/22/20 19:12 Dose: 4 mg Documented by: OMER Phenobarbital (Phenobarbital 65 Mg/Ml Vial) 260 mg IV NOW ONE Stop: 11/22/20 20:39 Last Admin: 11/22/20 21:16 Dose: 260 mg Documented by: KAE Vital Signs Vital signs: Vital Signs - 8 hr 11/22/20 18:31 11/22/20 19:40 11/22/20 19:42 Temperature 98.8 F Pulse Rate 121 H 102 H 102 H Respiratory Rate 20 21 Blood Pressure 112/81 169/96 H Pulse Oximetry 98 100 98 11/22/20 20:00 11/22/20 20:01 11/22/20 20:30 Temperature Pulse Rate 92 H 92 H 96 H Respiratory Rate 22 21 27 H Blood Pressure 170/92 H Pulse Oximetry 95 96 98 11/22/20 20:31 11/22/20 21:00 Temperature Pulse Rate 96 H 99 H Respiratory Rate 20 16 Blood Pressure 170/103 H 175/99 H Pulse Oximetry 99 100 Medical Decision Making Lab Data Lab results reviewed: Yes I reviewed the patient's lab results. Result diagrams: 11/22/20 18:54 11/22/20 15:53 Labs: Lab Results 11/22/20 11/22/20 11/22/20 Range/Units 15:53 15:53 15:53 WBC (4.5-11.0) X10^3/uL RBC (4.5-5.9) X10^6/uL Hgb (13.5-17.5) g/dL Hct (41-53) % MCV (80-100) fL MCH (26-34) PG MCHC (30-36) % RDW (11.6-14.8) % Plt Count (150-400) X10^3/uL Neut % (Auto) (50-75) % Lymph % (Auto) (25-40) % Hodgeman % (Auto) (3-14) % Eos % (Auto) (2-4) % Baso % (Auto) (0-2) % Neut # (Auto) (8678-3462) /uL Lymph # (Auto) (2016-5989) /uL Hodgeman # (Auto) (0-900) /uL Eos # (Auto) (0-450) /uL Baso # (Auto) (0-100) /uL Sodium 137 (137-145) mmol/L Potassium 3.5 (3.4-5.1) mmol/L Chloride 102 (98-107) mmol/L Carbon Dioxide 24 (22-32) mmol/L BUN 11 (9-20) mg/dL Creatinine 0.87 (0.66-1.25) mg/dL Estimated GFR > 60.0 (>60) mL/min BUN/Creatinine Ratio 12.6 (6-22) Glucose 107 H (70-100) mg/dL Calcium 9.0 (8.4-10.2) mg/dL Phosphorus 3.8 (2.5-4.5) mg/dL Total Bilirubin 0.4 (0.2-1.3) mg/dL AST 34 (17-59) IU/L ALT 49 (<50) IU/L Alkaline Phosphatase 104 (38-126) U/L Total Protein 7.6 (6.3-8.2) g/dL Albumin 4.5 (3.5-5.0) g/dL Globulin 3.1 (1.7-4.1) g/dL Albumin/Globulin Ratio 1.5 (1.0-2.8) TSH 1.34 (0.47-4.68) uIU/mL Free T4 1.13 (0.78-2.19) ng/dL Salicylates < 1.0 (<20) mg/dL Acetaminophen < 10 L (10-30) ug/mL Ethyl Alcohol 98 H ( - 10) mg/dL 11/22/20 Range/Units 18:54 WBC 12.3 H (4.5-11.0) X10^3/uL RBC 5.60 (4.5-5.9) X10^6/uL Hgb 16.2 (13.5-17.5) g/dL Hct 48.3 (41-53) % MCV 86.2 (80-100) fL MCH 28.9 (26-34) PG MCHC 33.5 (30-36) % RDW 12.8 (11.6-14.8) % Plt Count 430 H (150-400) X10^3/uL Neut % (Auto) 60.7 (50-75) % Lymph % (Auto) 30.0 (25-40) % Hodgeman % (Auto) 8.2 (3-14) % Eos % (Auto) 0.2 L (2-4) % Baso % (Auto) 0.9 (0-2) % Neut # (Auto) 7400 H (5047-5945) /uL Lymph # (Auto) 3700 (4512-8653) /uL Hodgeman # (Auto) 1000 H (0-900) /uL Eos # (Auto) 0 (0-450) /uL Baso # (Auto) 100 (0-100) /uL Sodium (137-145) mmol/L Potassium (3.4-5.1) mmol/L Chloride (98-107) mmol/L Carbon Dioxide (22-32) mmol/L BUN (9-20) mg/dL Creatinine (0.66-1.25) mg/dL Estimated GFR (>60) mL/min BUN/Creatinine Ratio (6-22) Glucose (70-100) mg/dL Calcium (8.4-10.2) mg/dL Phosphorus (2.5-4.5) mg/dL Total Bilirubin (0.2-1.3) mg/dL AST (17-59) IU/L ALT (<50) IU/L Alkaline Phosphatase (38-126) U/L Total Protein (6.3-8.2) g/dL Albumin (3.5-5.0) g/dL Globulin (1.7-4.1) g/dL Albumin/Globulin Ratio (1.0-2.8) TSH (0.47-4.68) uIU/mL Free T4 (0.78-2.19) ng/dL Salicylates (<20) mg/dL Acetaminophen (10-30) ug/mL Ethyl Alcohol ( - 10) mg/dL MDM Narrative Medical decision making narrative: His alcohol level was above the legal limit. He has had no seizure activity here in the ER but is definitely tachycardic and tremulous and nauseated. He is here with his . Had a long discussion with him regarding his symptoms. This is the 1st time he has sought help for his a lcohol use. He has been using it to help with his other mental health issues for which he does not see any individual nor taking the medications. It does appear that every time that he has tried to stop drinking at home he does have seizure-like activity. Unsure if this is related to the alcohol or his reported underlying seizure disorder or both. After the discussion with the patient he did agree to stay here in the hospital for further evaluation. Feel that the patient is not medically cleared given his prior history for transfer to a detox facility. I discussed the case with JOSE C Melvin the [facility] provider who will admit for further evaluation and treatment. Discharge Plan Departure Patient Disposition: Admitted As Inpatient Clinical Impression: Alcohol withdrawal Admit Date/Time: 11/22/20 21:10 Admit Provider: Dina Melvin
[2020-11-22] MEDS: LORazepam 2 MG/ML INJ 1 MG IV (21:13)
[2020-11-22] MEDS: MAGNESIUM SULFATE 2 GM, FOLIC ACID 1 MG, THIAMINE 100 MG, MULTIVITAMIN 10 ML in SODIUM ... IV (21:14)
[2020-11-22] MEDS: PHENobarbital 65 MG/ML VIAL 260 MG IV (21:16)
[2020-11-22] MEDS: KETOROLAC 60 MG/2 ML VIAL 30 MG IV (21:19)
[2020-11-22 21:26] LABS: Phosphorous 3.8 mg/dL (2.5-4.5)
[2020-11-22 22:00] LABS: COVID19 -Nasal RAPID Negative (Negative)
[2020-11-22 22:05] LABS: Ur Creatinine Normal (Normal); Ur Specific Gravity Normal (Normal); Urine pH Normal (Normal)
[2020-11-22 22:06] LABS: UR Morphine/Opiate cutoff 300 Negative (Negative); Urine Amphetamines Negative (Negative); Urine Barbiturates Negative (Negative); Urine Benzodiazepines Negative (Negative); Urine Cocaine Negative (Negative); Urine MDMA Negative (Negative); Urine Methadone Negative (Negative); Urine Methamphetamines Negative (Negative); Urine Oxycodone Negative (Negative); Urine Phencyclidine Negative (Negative); Urine Tetrahydrocannabinol Positive (Negative); Urine Tricyclic Antidepressant Negative (Negative)
[2020-11-22] MEDS: LORazepam 2 MG/ML INJ IV ×2 (22:30→23:55)
[2020-11-22] MEDS: IBUPROFEN 400 MG TABLET 800 MG PO (23:06)
[2020-11-23] VITALS (19 sets, daily range): BP systolic 125–168; BP diastolic 63–111; PULSE 87–124; RESP 14–22; TEMP 36.1–37.7; O2SAT 95–100
[2020-11-23] MEDS: LORazepam 2 MG/ML INJ IV ×7 (00:34→16:58)
--- NOTE | 2020-11-23 02:04 | PC.NURSE ---
Addendum entered by Roque Winters R.N. 11/23/20 06:47: Pt c/o of continuing CORDOVA that he believes is exacerbated by a broken tooth. 30mg PO tordol given. CIWA rechecked early - score = 7. Pt believes his symptoms are getting better and most of his discomfort is from his head and toothache Original Note: Pt initially c/o of hallucinations. Was observed to be fixated on something he was seeing near sink in room. CIWA score 19. Also c/o ongoing CORDOVA. Pt states that his anxiety and alcoholism were induced by service in [place]. Pt states that he drinks a 1L bottle of whisky each day and that he is determined to go into recovery. Pt states he had no recollection of his last seizure - was found on floor by his .
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
[2020-11-23] MEDS: DEXTROSE 5%-0.9% NS 1,000 ML 100 ML IV ×2 (05:46→16:58)
[2020-11-23 06:06] LABS: Add Manual Diff / Slide Review NO; Basophils Absolute Auto 100 /uL (0-100); Basophils Percent Auto 0.6 % (0-2); Eosinophils Absolute Auto 100 /uL (0-450); Eosinophils Percent Auto 0.7 % (2-4); Hematocrit 42.6 % (41-53); Lymphocytes Absolute Auto 2300 /uL (1100-4500); Lymphocytes Percent Auto 17.6 % (25-40); Mean Corpuscular HGB Conc 32.9 % (30-36); Mean Corpuscular Hemoglobin 28.3 PG (26-34); Monocytes Absolute Auto 1100 /uL (0-900); Monocytes Percent Auto 8.6 % (3-14); Neutrophils Absolute Auto 9600 /uL (1500-7000); Neutrophils Percent Auto 72.5 % (50-75); Platelet Count 338 X10^3/uL (150-400); Red Blood Cell Count 4.95 X10^6/uL (4.5-5.9); Red Cell Distribution Width 12.9 % (11.6-14.8); White Blood Cell Count 13.2 X10^3/uL (4.5-11.0)
[2020-11-23 06:12] LABS: Appearance Urine UA CLEAR; Bilirubin Urine UA NEGATIVE (NEGATIVE); Color Urine UA YELLOW; Glucose Urine UA NEGATIVE (Negative); Ketones Urine UA NEGATIVE (NEGATIVE); Leukocyte Esterase Urine UA NEGATIVE (NEGATIVE); Nitrite Urine UA NEGATIVE (Negative); Occult Blood Urine UA TRACE-LYSED (Negative); Protein Urine UA TRACE (Negative); Specific Gravity Urine UA 1.025 (1.000-1.035); Urobilinogen Urine UA 0.2 E.U./dL (0.2); pH Urine UA 5.5 (4.5-8.0)
[2020-11-23 06:17] LABS: Alanine Aminotransferase 37 IU/L (<50); Albumin 3.6 g/dL (3.5-5.0); Albumin Globulin Ratio 1.4 (1.0-2.8); Alkaline Phosphatase 97 U/L (38-126); Aspartate Aminotransferase 32 IU/L (17-59); BUN Creatinine Ratio 14.5 (6-22); Bilirubin Total 0.9 mg/dL (0.2-1.3); Blood Urea Nitrogen 11 mg/dL (9-20); Calcium 8.4 mg/dL (8.4-10.2); Carbon Dioxide 28 mmol/L (22-32); Chloride 103 mmol/L (98-107); Estimated Glomerular Filt Rate > 60.0 mL/min (>60); Globulin 2.5 g/dL (1.7-4.1); Glucose 109 mg/dL (70-100); HEMOLYSIS < 15 (0-50); Magnesium 2.2 mg/dL (1.6-2.3); Potassium 3.7 mmol/L (3.4-5.1); Sodium 135 mmol/L (137-145); Total Protein 6.1 g/dL (6.3-8.2)
[2020-11-23] MEDS: KETOROLAC 10 MG TABLET 30 MG PO (06:37)
[2020-11-23 07:01] LABS: Prothrombin Time 11.3 SECONDS (10.1-12.7)
[2020-11-23] MEDS: ENOXAPARIN 40 MG/0.4 ML SYRINGE SUBCUT (09:22)
[2020-11-23] MEDS: ONDANSETRON 4 MG/2 ML INJ IV (09:30)
[2020-11-23] MEDS: KETOROLAC 10 MG TABLET PO ×2 (11:53→23:22)
[2020-11-23] MEDS: chlordiazePOXIDE 25 MG CAPSULE 75 MG PO ×3 (11:53→23:41)
--- NOTE | 2020-11-23 14:41 | P.PN_ITS ---
Subjective Subjective Date Patient Seen: 11/23/20 Time Patient Seen: 14:41 Interval history: Aroldo Bustillo is a 34-year-old male with past medical history mild intermittent asthma and alcohol abuse who was admitted after trying to quit drinking at home but developed severe symptoms of alcohol withdrawal. Today he complains of a headache and mild tremulousness but is otherwise okay. He has had no seizures today but endorses these prior to coming into the hospital. He was started on Librium for a controlled taper this morning. Exam Vital Signs (past 8 hours): - 11/23/20 08:47 11/23/20 09:59 11/23/20 10:00 Temperature 97.0 F L Pulse Rate 91 H 95 H 95 H Respiratory Rate 18 16 16 Blood Pressure 134/78 131/82 131/82 Pulse Oximetry 98 99 11/23/20 12:23 11/23/20 13:48 11/23/20 14:40 Temperature 98.9 F Pulse Rate 100 H 108 H 106 H Respiratory Rate 16 16 16 Blood Pressure 138/99 H 146/88 H 131/94 H Pulse Oximetry 100 Oxygen Delivery Method Room Air Oxygen Flow Rate 0 Narrative Exam Narrative: GENERAL APPEARANCE: Well developed, well nourished, fatigued and mildly disheveled young male sleepy but arousable. SKIN: Inspection of the skin reveals no rashes, ulcerations or petechiae. HEENT: Normocephalic atraumatic, extraocular muscles are intact, oropharynx is clear and mucous membranes are moist, neck is supple without adenopathy NECK: Supple and symmetric. There was no thyroid enlargement, and no tenderness, or masses were felt. CHEST: Normal AP diameter and normal contour without any kyphoscoliosis. LUNGS: Auscultation of the lungs revealed no wheezes, rhonchi, or rales. CARDIOVASCULAR: There was a regular rate and rhythm without any murmurs, gallops, rubs. Peripheral pulses were 2+ and symmetric. ABDOMEN: Soft and nontender with normal bowel sounds. No ascites was noted. MUSCULOSKELETAL: There was no tenderness or effusions noted. Muscle strength and tone were normal. EXTREMITIES: No cyanosis, clubbing or edema. NEUROLOGIC: Alert and oriented x 3. Normal affect. Mild tongue fasciculations and tremulousness on outstretched hands. Strength is +5/5 in the Upper Extremities and Lower Extremities Bilaterally. Sensation to touch was normal. Objective Labs Result Diagrams: 11/23/20 05:45 11/23/20 05:45 Labs: Laboratory Results - last 24 hr 11/22/20 11/22/20 11/22/20 15:53 15:53 15:53 WBC RBC Hgb Hct MCV MCH MCHC RDW Plt Count Neut % (Auto) Lymph % (Auto) [place] % (Auto) Eos % (Auto) Baso % (Auto) Neut # (Auto) Lymph # (Auto) [place] # (Auto) Eos # (Auto) Baso # (Auto) PT INR Sodium 137 Potassium 3.5 Chloride 102 Carbon Dioxide 24 BUN 11 Creatinine 0.87 Estimated GFR > 60.0 BUN/Creatinine Ratio 12.6 Glucose 107 H Calcium 9.0 Phosphorus 3.8 Magnesium Total Bilirubin 0.4 AST 34 ALT 49 Alkaline Phosphatase 104 Total Protein 7.6 Albumin 4.5 Globulin 3.1 Albumin/Globulin Ratio 1.5 TSH 1.34 Free T4 1.13 Urine Color Urine Appearance Urine pH Ur Specific [place] Urine Protein Urine Glucose (UA) Urine Ketones Urine Occult Blood Urine Nitrate Urine Bilirubin Urine Urobilinogen Ur Leukocyte Esterase Salicylates < 1.0 U Opiates 300ng/mL cut Ur Oxycodone Screen Urine Methadone Screen Acetaminophen < 10 L Ur Barbiturates Screen U Tricyclic Antidepress Ur Phencyclidine Scrn Ur Amphetamines Screen U Methamphetamines Scrn Ur MDMA Scrn (Ecstasy) U Benzodiazepines Scrn Urine Cocaine Screen U Marijuana (THC) Screen Ethyl Alcohol 98 H SARS-CoV-2 (PCR) 11/22/20 11/22/20 11/22/20 18:54 21:30 21:36 WBC 12.3 H RBC 5.60 Hgb 16.2 Hct 48.3 MCV 86.2 MCH 28.9 MCHC 33.5 RDW 12.8 Plt Count 430 H Neut % (Auto) 60.7 Lymph % (Auto) 30.0 [place] % (Auto) 8.2 Eos % (Auto) 0.2 L Baso % (Auto) 0.9 Neut # (Auto) 7400 H Lymph # (Auto) 3700 [place] # (Auto) 1000 H Eos # (Auto) 0 Baso # (Auto) 100 PT INR Sodium Potassium Chloride Carbon Dioxide BUN Creatinine Estimated GFR BUN/Creatinine Ratio Glucose Calcium Phosphorus Magnesium Total Bilirubin AST ALT Alkaline Phosphatase Total Protein Albumin Globulin Albumin/Globulin Ratio TSH Free T4 Urine Color Urine Appearance Urine pH Ur Specific [place] Urine Protein Urine Glucose (UA) Urine Ketones Urine Occult Blood Urine Nitrate Urine Bilirubin Urine Urobilinogen Ur Leukocyte Esterase Salicylates U Opiates 300ng/mL cut Negative Ur Oxycodone Screen Negative Urine Methadone Screen Negative Acetaminophen Ur Barbiturates Screen Negative U Tricyclic Antidepress Negative Ur Phencyclidine Scrn Negative Ur Amphetamines Screen Negative U Methamphetamines Scrn Negative Ur MDMA Scrn (Ecstasy) Negative U Benzodiazepines Scrn Negative Urine Cocaine Screen Negative U Marijuana (THC) Screen Positive H Ethyl Alcohol SARS-CoV-2 (PCR) Negative 11/23/20 11/23/20 11/23/20 05:45 05:45 06:01 WBC 13.2 H RBC 4.95 Hgb 14.0 Hct 42.6 MCV 86.0 MCH 28.3 MCHC 32.9 RDW 12.9 Plt Count 338 Neut % (Auto) 72.5 Lymph % (Auto) 17.6 L [place] % (Auto) 8.6 Eos % (Auto) 0.7 L Baso % (Auto) 0.6 Neut # (Auto) 9600 H Lymph # (Auto) 2300 [place] # (Auto) 1100 H Eos # (Auto) 100 Baso # (Auto) 100 PT INR Sodium 135 L Potassium 3.7 Chloride 103 Carbon Dioxide 28 BUN 11 Creatinine 0.76 Estimated GFR > 60.0 BUN/Creatinine Ratio 14.5 Glucose 109 H Calcium 8.4 Phosphorus Magnesium 2.2 Total Bilirubin 0.9 AST 32 ALT 37 Alkaline Phosphatase 97 Total Protein 6.1 L Albumin 3.6 Globulin 2.5 Albumin/Globulin Ratio 1.4 TSH Free T4 Urine Color Yellow Urine Appearance Clear Urine pH 5.5 Ur Specific [place] 1.025 Urine Protein Trace H Urine Glucose (UA) Negative Urine Ketones Negative Urine Occult Blood Trace-lysed Urine Nitrate Negative Urine Bilirubin Negative Urine Urobilinogen 0.2 Ur Leukocyte Esterase Negative Salicylates U Opiates 300ng/mL cut Ur Oxycodone Screen Urine Methadone Screen Acetaminophen Ur Barbiturates Screen U Tricyclic Antidepress Ur Phencyclidine Scrn Ur Amphetamines Screen U Methamphetamines Scrn Ur MDMA Scrn (Ecstasy) U Benzodiazepines Scrn Urine Cocaine Screen U Marijuana (THC) Screen Ethyl Alcohol SARS-CoV-2 (PCR) 11/23/20 06:44 WBC RBC Hgb Hct MCV MCH MCHC RDW Plt Count Neut % (Auto) Lymph % (Auto) [place] % (Auto) Eos % (Auto) Baso % (Auto) Neut # (Auto) Lymph # (Auto) [place] # (Auto) Eos # (Auto) Baso # (Auto) PT 11.3 INR 1.0 Sodium Potassium Chloride Carbon Dioxide BUN Creatinine Estimated GFR BUN/Creatinine Ratio Glucose Calcium Phosphorus Magnesium Total Bilirubin AST ALT Alkaline Phosphatase Total Protein Albumin Globulin Albumin/Globulin Ratio TSH Free T4 Urine Color Urine Appearance Urine pH Ur Specific [place] Urine Protein Urine Glucose (UA) Urine Ketones Urine Occult Blood Urine Nitrate Urine Bilirubin Urine Urobilinogen Ur Leukocyte Esterase Salicylates U Opiates 300ng/mL cut Ur Oxycodone Screen Urine Methadone Screen Acetaminophen Ur Barbiturates Screen U Tricyclic Antidepress Ur Phencyclidine Scrn Ur Amphetamines Screen U Methamphetamines Scrn Ur MDMA Scrn (Ecstasy) U Benzodiazepines Scrn Urine Cocaine Screen U Marijuana (THC) Screen Ethyl Alcohol SARS-CoV-2 (PCR) [facility] Medical History (Updated 11/23/20 @ 05:20 by JOSE CasanovaNIDIA) Alcohol abuse Alcohol abuse by father Back pain Neuropathy TBI (traumatic brain injury) (~2008) Surgical History Anesthesia Crush injury of leg History of ankle surgery History of facial surgery History of knee replacement (~2014) Status post hip surgery Family History Father Alcohol abuse Mother Congestive heart failure Breast cancer Social History marital status: household members: spouse 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 1. Alcohol withdrawal -Continue CIWA protocol with seizure precautions and lorazepam p.o. or IV as needed per CIWA protocol. History of seizures with withdrawal but none since [place]. Given Phenobarbital in the ER, remained agitated overnight on CIWA protocol. -continue Librium 75 mg q.6 hours today plan to taper tomorrow to Q 8 depending on symptoms. -last drink was yesterday evening at 6:00 p.m., alcohol level on admission was 98. He had been trying to cut down at home already. -patient is interested in seeking inpatient care for detox, social Work has been consulted -urine drug screen also positive for marijuana Code status: Full code Surrogate decision maker: Spouse Dina Dispo: inpatient status, anticipate discharge in the next 2-3 days after librium taper or transfer to detox center when medically ready if obtainable. COVID PCR: Negative VTE/DVT prophylaxis: Lovenox 40 mg
--- NOTE | 2020-11-23 15:52 | PC.NURSE ---
Pt presents [place] and states he is anxious after talking w/director of social services & . Offered medication to help, pt declined. Relaxation technique of deep breathing was implemented. Pt HR was 124, nor showing 100. Pt resting at this time. Call light w/in reach, seizure pads in place, bed alarm on for pt safety.
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
[2020-11-23] MEDS: hydrOXYzine pamoate 25 MG CAPSULE PO (16:58)
--- NOTE | 2020-11-23 17:06 | PC.NURSE ---
Addendum entered by Anette Pratt R.N. 11/23/20 18:20: ICU notified this RN of patient's tachycardia on telemetry. Notified Dr Trevino of HR and interventions already attempted (dark room, ativan, librium), no new orders. Original Note: Shift note: Patient is AxOx3, can make needs known but is reticent to talk about his feelings/emotions. CIWA at assessment: 13, medicated per protocol. Hx of TBI and multiple surgeries with retained hardware. Seizure pads in place, bed alarm on and functioning. Patient reports plan to get sober from alcohol, able to verbalize goals and make needs known. Hx of recent fall d/t seizure, moderate fall risk. Call light in reach.
[2020-11-24] VITALS (8 sets, daily range): BP systolic 103–135; BP diastolic 66–89; PULSE 72–107; RESP 14–20; TEMP 35.7–37.2; O2SAT 97–100
[2020-11-24] MEDS: hydrOXYzine pamoate 25 MG CAPSULE PO (00:31)
[2020-11-24] MEDS: LORazepam 2 MG/ML INJ IV (02:37)
--- NOTE | 2020-11-24 02:55 | CM.MNRNOTE ---
Woke up crying & C/O anxiety, CIWA score was 14. Medicated with 2 mg. of Lorazepam IVP. Will cont. POC & monitor.
[2020-11-24] MEDS: DEXTROSE 5%-0.9% NS 1,000 ML 100 ML IV (03:17)
[2020-11-24] MEDS: chlordiazePOXIDE 25 MG CAPSULE 75 MG PO (05:40)
[2020-11-24 08:34] LABS: Add Manual Diff / Slide Review NO; Basophils Absolute Auto 100 /uL (0-100); Basophils Percent Auto 0.5 % (0-2); Eosinophils Absolute Auto 100 /uL (0-450); Eosinophils Percent Auto 0.7 % (2-4); Hematocrit 43.6 % (41-53); Hemoglobin 14.4 g/dL (13.5-17.5); Lymphocytes Absolute Auto 2100 /uL (1100-4500); Mean Corpuscular HGB Conc 33.1 % (30-36); Mean Corpuscular Hemoglobin 28.9 PG (26-34); Mean Corpuscular Volume 87.2 fL (80-100); Monocytes Absolute Auto 700 /uL (0-900); Monocytes Percent Auto 6.7 % (3-14); Neutrophils Absolute Auto 7200 /uL (1500-7000); Neutrophils Percent Auto 71.1 % (50-75); Platelet Count 311 X10^3/uL (150-400); White Blood Cell Count 10.1 X10^3/uL (4.5-11.0)
[2020-11-24] MEDS: MULTIVITAMIN 1 TABLET 1 TAB PO (08:37)
[2020-11-24] MEDS: THIAMINE 100 MG TABLET PO (08:37)
[2020-11-24] MEDS: FOLIC ACID 1 MG TABLET PO (08:37)
[2020-11-24] MEDS: ENOXAPARIN 40 MG/0.4 ML SYRINGE SUBCUT (08:37)
[2020-11-24 08:55] LABS: Alanine Aminotransferase 39 IU/L (<50); Albumin 4.1 g/dL (3.5-5.0); Albumin Globulin Ratio 1.5 (1.0-2.8); Alkaline Phosphatase 113 U/L (38-126); Aspartate Aminotransferase 34 IU/L (17-59); BUN Creatinine Ratio 12.3 (6-22); Bilirubin Total 0.7 mg/dL (0.2-1.3); Blood Urea Nitrogen 10 mg/dL (9-20); Calcium 8.7 mg/dL (8.4-10.2); Carbon Dioxide 27 mmol/L (22-32); Chloride 105 mmol/L (98-107); Estimated Glomerular Filt Rate > 60.0 mL/min (>60); Globulin 2.7 g/dL (1.7-4.1); Glucose 112 mg/dL (70-100); HEMOLYSIS < 15 (0-50); Potassium 3.5 mmol/L (3.4-5.1); Sodium 138 mmol/L (137-145); Total Protein 6.8 g/dL (6.3-8.2)
--- NOTE | 2020-11-24 09:10 | PM.PN.1 ---
Subjective Subjective Date Patient Seen: 11/24/20 Time Patient Seen: 09:11 Interval history: Aroldo Bustillo is a 34-year-old male with past medical history mild intermittent asthma and alcohol abuse who was admitted after trying to quit drinking at home but developed severe symptoms of alcohol withdrawal. This morning he was asking to leave, but was not willing to do so AMA. He was frustrated by limitations in the hospital including not being able to wear his clothes, fall precautions, and the pads in the bed. He also has uncontrolled tooth pain and was going to make a visit to the dental office [facility] this AM. He has been very motivated to stop drinking and is trying to improve. He is doing much better this AM but is still on high librium dosing. I discussed with him about needing to taper off of librium given his history of withdrawal seizures for safety. He was willing to stay if we were able to get his tooth pain controlled and if he is able to wear his clothes. He also has a history of PTSD from his service. Given lack of seizure activity, I discontinued seizure precautions and his IV fluids to allow him to be a little more free. Will also start some oxycodone for his tooth pain. Exam Vital Signs (past 8 hours): - 11/24/20 03:00 11/24/20 03:01 11/24/20 07:49 Temperature 98.9 F Pulse Rate 94 H 94 H 72 Respiratory Rate 14 14 18 Blood Pressure 119/69 119/69 Pulse Oximetry 98 100 11/24/20 07:50 Temperature 98.1 F Pulse Rate 107 H Respiratory Rate 16 Blood Pressure 131/86 Pulse Oximetry 99 Oxygen Delivery Method Room Air Oxygen Flow Rate 0 Narrative Exam Narrative: GENERAL APPEARANCE: Well developed, well nourished, fatigued and mildly disheveled young male sleepy but arousable. SKIN: Inspection of the skin reveals no rashes, ulcerations or petechiae. HEENT: Normocephalic atraumatic, extraocular muscles are intact, oropharynx is clear and mucous membranes are moist, neck is supple without adenopathy NECK: Supple and symmetric. There was no thyroid enlargement, and no tenderness, or masses were felt. CHEST: Normal AP diameter and normal contour without any kyphoscoliosis. LUNGS: Auscultation of the lungs revealed no wheezes, rhonchi, or rales. CARDIOVASCULAR: There was a regular rate and rhythm without any murmurs, gallops, rubs. Peripheral pulses were 2+ and symmetric. ABDOMEN: Soft and nontender with normal bowel sounds. No ascites was noted. MUSCULOSKELETAL: There was no tenderness or effusions noted. Muscle strength and tone were normal. EXTREMITIES: No cyanosis, clubbing or edema. NEUROLOGIC: Alert and oriented x 3. intermittently anxious and walking about the room frequently. Improved tongue fasciculations and tremulousness. Strength is +5/5 in the Upper Extremities and Lower Extremities Bilaterally. Sensation to touch was normal. Objective Labs Result Diagrams: 11/24/20 08:20 11/24/20 08:20 Labs: Laboratory Results - last 24 hr 11/24/20 11/24/20 08:20 08:20 WBC 10.1 RBC 5.00 Hgb 14.4 Hct 43.6 MCV 87.2 MCH 28.9 MCHC 33.1 RDW 13.0 Plt Count 311 Neut % (Auto) 71.1 Lymph % (Auto) 21.0 L [place] % (Auto) 6.7 Eos % (Auto) 0.7 L Baso % (Auto) 0.5 Neut # (Auto) 7200 H Lymph # (Auto) 2100 [place] # (Auto) 700 Eos # (Auto) 100 Baso # (Auto) 100 Sodium 138 Potassium 3.5 Chloride 105 Carbon Dioxide 27 BUN 10 Creatinine 0.81 Estimated GFR > 60.0 BUN/Creatinine Ratio 12.3 Glucose 112 H Calcium 8.7 Total Bilirubin 0.7 AST 34 ALT 39 Alkaline Phosphatase 113 Total Protein 6.8 Albumin 4.1 Globulin 2.7 Albumin/Globulin Ratio 1.5 [facility] Medical History (Updated 11/23/20 @ 05:20 by CRISTAL Casanova) Alcohol abuse Alcohol abuse by father Back pain Neuropathy TBI (traumatic brain injury) (~2008) Surgical History Anesthesia Crush injury of leg History of ankle surgery History of facial surgery History of knee replacement (~2014) Status post hip surgery Family History Father Alcohol abuse Mother Congestive heart failure Breast cancer Social History marital status: household members: spouse 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 1. Alcohol withdrawal, active, present on admission. -Continue CIWA protocol with seizure precautions and lorazepam p.o. or IV as needed per CIWA protocol. History of seizures with withdrawal but none since admission. Given Phenobarbital in the ER. -patient requesting to go home, extensive discussion today about risks, will modify some treatments to make him more comfortable and attempt a more aggressive librium taper, started 75 mg q6, will decrease to 50 mg q6, start 25 mg q6 tomorrow AM. If still doing well could potentially discharge tomorrow. -last drink was yesterday evening at 6:00 p.m., alcohol level on admission was 98. He had been trying to cut down at home already. -patient is interested in seeking treatment, resources provided via [employer] Appreciate assistance. -urine drug screen also positive for marijuana 2. R tooth pain, acute, present on admission. - no evidence of infection or abscess. - continue oxycodone and benzocaine spray as needed. - outpatient dental appointment recommended. 3. PTSD, chronic - patient with some flashbacks and anxiety during his hospital stay, have discontinued IV and seizure precautions as he felt claustrophobic making him quite distressed. Will add PO lorazepam for anxiety in addition to librium taper and CIWA protocol. Code status: Full code Surrogate decision maker: Spouse Dina Dispo: inpatient status, anticipate discharge in the next 1-2 days after librium taper or transfer to detox center when medically ready if obtainable. COVID PCR: Negative VTE/DVT prophylaxis: Lovenox 40 mg
[2020-11-24] MEDS: OXYCODONE IR 5 MG TABLET PO (10:07)
[2020-11-24] MEDS: ACETAMINOPHEN 325 MG TABLET 975 MG PO ×2 (10:08→23:34)
[2020-11-24] MEDS: chlordiazePOXIDE 25 MG CAPSULE 50 MG PO ×3 (11:17→23:34)
[2020-11-24] MEDS: LORazepam 1 MG TABLET 2 MG PO (11:37)
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
[2020-11-24] MEDS: TETRACAINE/BENZOCAINE/BUTAMBEN (CETACAINE) BOTTLE 1 SPRAY TOP ×2 (13:52→23:47)
[2020-11-24] MEDS: OXYCODONE IR 5 MG TABLET 10 MG PO ×3 (14:58→22:33)
--- NOTE | 2020-11-25 02:09 | PC.NURSE ---
Addendum entered by Deborah Richards R.N. 11/25/20 06:57: 1 hour after being given coffee by request, the patient became quite anxious (by self report). Requested medication for anxiety. Administered PRN lorazepam PO. Discussed with patient given his history, he may want to try to stay away from caffeine which likely triggered the feeling of anxiety. I encouraged him to google common foods and drinks and lifestyle choices that can pose as a trigger. He voiced appreciation. Addendum entered by Deborah Richards R.N. 11/25/20 06:57: Pt notified and agrees with plan. Addendum entered by Deborah Richards R.N. 11/25/20 05:40: Discussed patient's questions with hospitalist who would prefer to still administer the 25mg of Librium at 0600, and if all goes well, he should be discharging home soon thereafter. Also declines to start antibiotic therapy as there does not appear to be any s/sx of infection. The patient will need to follow up with his dentist regarding that change. Original Note: Pt c/o tooth pain, lower left. Pain radiates to ear and head, causing headache. Administered tylenol. Asks to pass on to the doctor requesting antibiotic start prior to seeing dentist. Pt also requesting to stop taper as of 0600 today since it's going to be only 1 pill starting at 6am. Pt was just given his last dose of 2 capsules (50mg).
[2020-11-25 05:53] VITALS: BP 115/91; PULSE 70; RESP 16; TEMP 36.4; O2SAT 98
[2020-11-25] MEDS: TETRACAINE/BENZOCAINE/BUTAMBEN (CETACAINE) BOTTLE 1 SPRAY TOP (06:06)
[2020-11-25] MEDS: OXYCODONE IR 5 MG TABLET 10 MG PO ×2 (06:06→09:25)
[2020-11-25] MEDS: chlordiazePOXIDE 25 MG CAPSULE PO ×2 (06:06→11:11)
[2020-11-25] MEDS: LORazepam 1 MG TABLET 2 MG PO ×2 (06:52→11:11)
[2020-11-25 08:25] VITALS: PULSE 105; RESP 16
[2020-11-25] MEDS: FOLIC ACID 1 MG TABLET PO (08:25)
[2020-11-25] MEDS: MULTIVITAMIN 1 TABLET 1 TAB PO (08:25)
[2020-11-25] MEDS: ENOXAPARIN 40 MG/0.4 ML SYRINGE SUBCUT (08:25)
[2020-11-25] MEDS: ACETAMINOPHEN 325 MG TABLET 975 MG PO (09:24)
[2020-11-25] MEDS: THIAMINE 100 MG TABLET PO (09:25)
[2020-11-25] MEDS: hydrOXYzine pamoate 25 MG CAPSULE PO (09:25)
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
--- NOTE | 2020-11-25 11:45 | CM.DPC ---
DCP Discharge Home Per MD, pt has low CIWA scores and no current tremors or active withdrawal symptoms and medically stable to d/c. SW met bedside with pt and spouse and explained role and pt confirms that he remembers meeting with ED DEBORA Crowley yesterday and was very appreciative of the conversation and staff care. Pt and spouse confirm that they feel ready to d/c home today and have a scheduled [facility] appt [facility] with [facility] per regular schedule and then an in-person appt a few days later. Pt and spouse state they have already reached out to their [facility] provider and requested assist with outpt CD treatment and feel comfortable with moving forward with [facility] support and decline a list of other outpt CD tx providers. Spouse bedside and plans to transport pt home today. SW updated RN and no concerns noted at this time. Plan: Patient to d/c home via spouse POV today and outpt follow up through [facility] for E[facility]H treatment. No further SW needs at this time. PEGGY Wilkins
--- NOTE | 2020-11-25 15:43 | PC.NURSE ---
Discharge: Feels ready to d/c home. No hallucinations, pt reports he was having some when he was admitted but none now. Etoh scale was 5 each time checked. Off for anxiety and unsure of date. MD here and she gave d/c instructions. Spouse present at time of teaching. Reviewed d/c packet, pt reports he has a dentist appt made and he is setting up MD appts with [facility]. Given rx. Questions answered. Pt d/c home via auto w/spouse.
== END 2020-11-25 11:30 | disposition home or self-care (01) | DRG 897 ==
LOC: ED 20:46 → AC 11-23 09:39
PROVIDERS: Admitting Provider Nurse Practitioner Family; Emergency Provider Emergency Medicine; Referring Provider Emergency Medicine; Visit Provider Nurse Practitioner Family
DX: F10.231 Alcohol dependence with withdrawal delirium (principal); Y90.4 Blood alcohol level of 80-99 mg/100 ml; F43.10 Post-traumatic stress disorder, unspecified; K08.89 Other specified disorders of teeth and supporting structures; Z87.820 Personal history of traumatic brain injury
CPT/HCPCS: 36415; 80053; 80305; 80320; 80329; 81003; 83735; 84100; 84439; 84443; 85025; 85610; 87635; 94762; 96361; 96374; 96375; 99284; C9803; A9270; G0480; J1650; J1885; J2060; J2405; J2560; J3475